=== PATIENT | male | born 1945 | race Caucasian/White ===

== ENCOUNTER → 2017-05-10 | Outpatient (CLI) | payer OTHER | END | disposition home or self-care (01) | LOC: LAB 12:44 | PROVIDERS: ATTEND Urology | DX: N20.1 Calculus of ureter (principal) | CPT/HCPCS: 36415; 82565; 84520 ==

== ENCOUNTER → 2017-05-11 | Outpatient (CLI) | payer OTHER ==
[~2017-05-11] MED LIST: IOPAMIDOL-370 100 ML VIAL IV ONE
== END | disposition home or self-care (01) ==
LOC: RAH 09:28
PROVIDERS: ATTEND Urology
DX: N20.0 Calculus of kidney (principal)
CPT/HCPCS: 74400; Q9967

== ENCOUNTER → 2017-08-02 | Outpatient (CLI) | payer OTHER | END | disposition home or self-care (01) | LOC: RAH 08:35 | PROVIDERS: ATTEND Urology | DX: N20.2 Calculus of kidney with calculus of ureter (principal); I10 Essential (primary) hypertension; E03.9 Hypothyroidism, unspecified | CPT/HCPCS: 74400; Q9967 ==

== ENCOUNTER 2023-05-12 11:12 | Emergency (ER) | payer OTHER ==
[~2023-05-12] VITALS: Ht 175.3 cm; Wt 108.9 kg
[2023-05-12 12:21] LABS: HEMATOCRIT 42.7 % (42-54); MEAN CORPUSCULAR HEMOGLOBIN 31.4 pg (27.0-33.0); MEAN CORPUSCULAR HGB CONC 33.7 g/dL (32.0-36.0); PLATELET COUNT (AUTO) 205 K/uL (130-400); RED BLOOD CELL COUNT(AUTO) 4.59 MIL/uL (4.50-6.20); RED CELL DISTRIBUTION WIDTH 13.3 % (11.0-15.5); WHITE BLOOD COUNT (AUTO) 7.7 K/uL (4.8-10.8)
[2023-05-12 12:30] LABS: CREATININE 0.8 mg/dL (0.5-1.5); MAGNESIUM 2.2 mg/dL (1.80-2.40); POTASSIUM 4.2 mmol/L (3.5-5.1)
[2023-05-12 12:35] LABS: COVID19 (SARS ANTIGEN RAPID) PRESUMPTIVE NEGATIVE (NEGATIVE)
[2023-05-12 12:43] LABS: INFLUENZA TYPE A Negative For Type A (NEGATIVE); INFLUENZA TYPE B Negative For Type B (NEGATIVE)
[2023-05-12 12:45] LABS: B-TYPE NATRIURETIC PEPTIDE < 5 pg/mL (0-100)
[2023-05-12] MEDS ORDERED: BUDESONIDE 0.5 MG/2 ML INH IH ONE (13:16)
[2023-05-12] MEDS ORDERED: ALBUTEROL 0.083% 2.5 MG/3 ML INH IH ONE (13:30)
[2023-05-12] MEDS ORDERED: DEXAMETHASONE SOD PHOSPHATE 4 MG/ML 1ML VIAL IVP ONE (13:30)
[2023-05-12 13:36] VITALS: PULSE 86; RESP 20
[2023-05-12] MEDS ORDERED: BUDE90AE IH (14:06)
[2023-05-12] MEDS ORDERED: BENZ-39 PO (14:06)
[2023-05-12 14:47] VITALS: BP 135/82; PULSE 76; RESP 16; O2SAT 96
[2023-05-12] MEDS ORDERED: BUDESONIDE 0.5 MG/2 ML INH IH SCH (18:00)
== END 2023-05-12 15:12 | disposition home or self-care (01) ==
LOC: EDH 11:12
DX: J06.9 Acute upper respiratory infection, unspecified (principal); R05.9 Cough, unspecified; E03.9 Hypothyroidism, unspecified; E78.00 Pure hypercholesterolemia, unspecified; Z79.51 Long term (current) use of inhaled steroids; Z20.822 Contact with and (suspected) exposure to COVID-19
CPT/HCPCS: 99285; 96374; 71045; 87426; 83735; 84484; 80048; 83880; 85027; 87040; 87420; 87804 ×2; 83605; 36415; 93005; 94640; J1100

== ENCOUNTER → 2023-07-20 | Outpatient (CLI) | payer OTHER ==
[~2023-07-20] MED LIST changes: +BENZ-39 PO; +BUDE90AE IH; -IOPAMIDOL-370 100 ML VIAL IV ONE
== END | disposition home or self-care (01) ==
LOC: SHCH 13:58
PROVIDERS: ATTEND Internal Medicine Cardiovascular Disease
DX: I87.2 Venous insufficiency (chronic) (peripheral) (principal); R60.9 Edema, unspecified
CPT/HCPCS: 93970

== ENCOUNTER → 2023-07-24 | Outpatient (CLI) | payer OTHER | END | disposition home or self-care (01) | LOC: SHCH 14:50 | PROVIDERS: ATTEND Internal Medicine Cardiovascular Disease | DX: I35.1 Nonrheumatic aortic (valve) insufficiency (principal); I51.7 Cardiomegaly; I25.10 Atherosclerotic heart disease of native coronary artery without angina pectoris; R07.9 Chest pain, unspecified; E78.5 Hyperlipidemia, unspecified | CPT/HCPCS: 93306 ==

== ENCOUNTER → 2023-07-25 | Outpatient (CLI) | payer OTHER ==
[2023-07-25] MEDS: REGADENOSON 0.4 MG/5 ML PF SYG IVP ONE (15:01)
== END | disposition home or self-care (01) ==
LOC: SHCH 08:03
PROVIDERS: ATTEND Internal Medicine Cardiovascular Disease
DX: R07.9 Chest pain, unspecified (principal)
CPT/HCPCS: 78452; 96374; 93017; J2785; A9500 ×2

== ENCOUNTER 2023-09-25 07:48 | Day surgery (SDC) | payer OTHER ==
[2023-09-21 08:54] VITALS: BP 144/80; PULSE 70; RESP 18
[2023-09-21 09:01] LABS: CREATININE 0.9 mg/dL (0.5-1.3); POTASSIUM 3.8 mmol/L (3.5-5.1)
[2023-09-21 09:02] LABS: BASOPHILS # (AUTO) 0.06 K/uL (0.00-0.20); BASOPHILS % (AUTO) 0.8 % (0.0-5.0); EOSINOPHILS # (AUTO) 0.29 K/uL (0.00-0.70); HEMATOCRIT 46.7 % (42-54); IMMATURE GRANULOCYTE ABSOLUTE 0.02 K/uL (0-1); LYMPHOCYTES # (AUTO) 2.5 K/uL (1.0-4.8); LYMPHOCYTES % (AUTO) 33.8 % (21.0-51.0); MEAN CORPUSCULAR HEMOGLOBIN 31.4 pg (27.0-33.0); MEAN CORPUSCULAR VOLUME 95.1 fL (79-99); MONOCYTES # (AUTO) 0.7 K/uL (0.1-1.0); MONOCYTES % (AUTO) 9.5 % (3.0-13.0); NEUTROPHILS # (AUTO) 3.8 K/uL (1.8-7.7); NEUTROPHILS % (AUTO) 51.6 % (40.0-77.0); PLATELET COUNT (AUTO) 205 K/uL (130-400); RED BLOOD CELL COUNT(AUTO) 4.91 MIL/uL (4.50-6.20); RED CELL DISTRIBUTION WIDTH 13.6 % (11.0-15.5); WHITE BLOOD COUNT (AUTO) 7.3 K/uL (4.8-10.8)
[2023-09-21 09:17] LABS: INR <= 0.93 (0.85-1.15); PROTHROMBIN TIME 10.3 SEC (9.6-11.6)
[2023-09-21 09:18] LABS: APPEARANCE,URINE CLEAR (CLEAR); BILIRUBIN,URINE NEGATIVE (NEGATIVE); COLOR,URINE DARK-YELLOW (YELLOW); GLUCOSE, URINE (UA) NEGATIVE (NEGATIVE); KETONES,URINE NEGATIVE (NEGATIVE); LEUKOCYTE ESTERASE ,URINE NEGATIVE Leu/uL (NEGATIVE); NITRATE,URINE NEGATIVE (NEGATIVE); OCCULT BLOOD,URINE NEGATIVE (NEGATIVE); PH,URINE 5.5 (5.0-8.0); PROTEIN,URINE NEGATIVE (NEGATIVE)
[2023-09-21 09:18] LABS: PARTIAL THROMBOPLASTIN TIME 28.2 SEC (26.3-35.5)
[2023-09-21 09:20] LABS: ADD UA MICROSCOPIC YES
[2023-09-21 09:33] LABS: B-TYPE NATRIURETIC PEPTIDE 5 pg/mL (0-100)
[2023-09-21 09:42] LABS: RBC,URINE 0-1 /HPF (0-1); WBC,URINE 0-1 /HPF (0-1)
[2023-09-25] VITALS (8 sets, daily range): BP systolic 125–145; BP diastolic 72–92; PULSE 55–72; RESP 17–18
[~2023-09-25] VITALS: Ht 175.3 cm; Wt 105.9 kg
[~2023-09-25 07:48] MED LIST changes: +ALFU10TA9 PO; -BENZ-39 PO; -BUDE90AE IH; +LEVO50TA11 PO
[2023-09-25] MEDS: 0.9%NACL 1000ML 1,000 ML IV ONE (08:42)
[2023-09-25] MEDS ORDERED: LIDOCAINE HCL 400MG/20ML VIAL ONE (10:17)
[2023-09-25] MEDS ORDERED: MEPERIDINE-PF 25 MG/ML SYG ONE ×2 (10:18→10:32)
[2023-09-25] MEDS ORDERED: NICARDIPINE 25MG INJ IV ONE (10:18)
[2023-09-25] MEDS ORDERED: MIDAZOLAM HCL 1 MG/ML 2ML VIAL ONE ×2 (10:18→10:32)
[2023-09-25] MEDS ORDERED: HEPARIN 10,000 UNIT/10ML (1,000 UNIT/ML) VIAL ONE (10:18)
[2023-09-25] MEDS ORDERED: SODIUM BICARB 50MEQ 50ML VIAL 50 ML ONE (10:18)
[2023-09-25] MEDS ORDERED: IOHEXOL 350 MG/ML 100ML INFUS..BTL IV ONE (10:18)
[2023-09-25] MEDS ORDERED: NITROGLYCERIN 50MG VIAL ONE (10:19)
[2023-09-25] MEDS ORDERED: 0.9%NACL 1000ML 1,000 ML IV SCH (12:00)
[2023-09-25] MEDS ORDERED: CEFAZOLIN SODIUM 2 GM VIAL IVPB SCH (13:00)
[2023-09-25] MEDS ORDERED: ATORVASTATIN 40 MG TABLET PO SCH (21:00)
[2023-09-25] MEDS ORDERED: METOPROLOL TARTRATE 25 MG TAB PO SCH (21:00)
[2023-09-26] MEDS ORDERED: ASPIRIN 81 MG EC TAB PO SCH (09:00)
== END 2023-09-25 15:33 | disposition home or self-care (01) ==
LOC: DAH 07:48 → UNDOADMIN 07:49 → DAHIP 07:49
PROVIDERS: ATTEND Internal Medicine Cardiovascular Disease
DX: I25.119 Atherosclerotic heart disease of native coronary artery with unspecified angina pectoris (principal); I10 Essential (primary) hypertension; I25.3 Aneurysm of heart; I87.1 Compression of vein; K21.9 Gastro-esophageal reflux disease without esophagitis; J45.909 Unspecified asthma, uncomplicated; E78.5 Hyperlipidemia, unspecified; E66.9 Obesity, unspecified; E03.9 Hypothyroidism, unspecified; Z79.899 Other long term (current) drug therapy; Z79.01 Long term (current) use of anticoagulants; Z68.35 Body mass index [BMI] 35.0-35.9, adult; Z79.890 Hormone replacement therapy
CPT/HCPCS: 80048; 83880; 85025; 85610; 85730; 81001; 36415 ×2; 71045; 93005; 93458; 92978; 85347; 92979 ×3; C1887 ×3; C1769 ×2; A4649; C1894; C1753; J3490 ×4; J7030; J1644 ×2; J2250 ×2; J2175 ×2; Q9967; A4215; A4222; A4221; A4663; A4606; Q9965 ×2; A4223 ×3; 99156; 99157

== ENCOUNTER 2024-06-24 18:11 | Inpatient (IN) | payer OTHER ==
[~2024-06-24] VITALS: Ht 175.3 cm; Wt 85.8 kg
[~2024-06-24 18:11] MED LIST changes: +AEC81 PO; +ALFU10TA46 PO; -ALFU10TA9 PO; +FURO20TA4 PO; +METO25TA6 PO; +MORINGA PO; +OMEG100033 PO; +ROSU20TA98 PO; +VITAMIN B COMPLEX PO; +ZINC PO
--- NOTE | 2024-06-24 18:45 | EKG ---
[facility] Test Date: 2024-06-24 Test Time: 18:43:45 Pat Name: PARK WING Department: EDH Room: ED Gender: M Stabber: [id number] : 1945 Requested By: DARELL ACHARYA Order Number: [id number] Reading MD: Cam Malik Measurements Intervals [place] Rate: 111 P: 47 GA: 166 QRS: 55 QRSD: 93 T: 266 QT: 333 QTc: 453 Interpretive Statements Sinus tachycardia Abnormal T, consider ischemia, diffuse leads Compared to ECG 10/30/2023 15:33:14 Sinus rhythm no longer present Prolonged QT interval no longer present T-wave abnormality still present Possible ischemia still present Electronically Signed On 06-25-2024 23:32:13 CDT by Cam Malik Please click the below link to view image of tracing.
--- NOTE | 2024-06-24 19:05 | ERN ---
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 Patient denies any nausea or vomiting, denies any fevers. Reports loose stools, left lower abdominal pain. Patient reports taking baby aspirin every day. Allergies: Coded Allergies: No Known Drug Allergies (Unverified Allergy, Unknown, 05/12/23) Home Meds Reported Medications Metoprolol Tartrate (Metoprolol Tartrate) 25 Mg Tablet, 25 MG PO BID, TAB 11/04/23 Metoprolol Tartrate (Metoprolol Tartrate) 25 Mg Tablet, 25 MG PO BID, TAB 11/04/23 Furosemide (Furosemide) 20 Mg Tablet, 20 MG PO DAILY, TAB 11/04/23 [[place]] No Conflict Check, 4 TAB PO DAILY 10/27/23 [Zinc] No Conflict Check, 1 TAB PO DAILY 10/27/23 [place]-3/Dha/Epa/Fish Oil (Fish Oil 1,000 mg Softgel) 1,000 Mg (120 Mg-180 Mg) Capsule, 1000 MG PO BID, CAP 10/27/23 [Vitamin B Complex] No Conflict Check, 1 TAB PO DAILY 10/27/23 Rosuvastatin Calcium (Rosuvastatin Calcium) 20 Mg Tablet, 10 MG PO AM, TAB 10/27/23 Aspirin (ASPIRIN 81 MG ECTAB) 81 Mg Ectab, 81 MG PO DAILY, TAB.EC 10/27/23 Alfuzosin HCl (Alfuzosin HCl) 10 Mg Tab.er.24h, 10 MG PO HS, TAB 09/21/23 Levothyroxine Sodium (Levothyroxine Sodium) 50 Mcg Tablet, 50 MCG PO ACBKFST, TAB 09/21/23 Past Medical History Past Medical History: High Cholesterol, Heart Disease, Hypothyroid, Kidney Stone, Prostatitis Additional Past Medical Hx: BPH Surgical History: CABG, Other RN Note Reviewed/Agreed w/PFSH: Yes Review of System Dictation Constitutional: Negative for fever,chills, and weight loss Eyes: Negative for injury, pain,redness, and discharge ENT: Negative for injury,pain or swelling Cardiovascular: Negative for chest pain, palpitations, and edema Respiratory: Negative for shortness of breath, cough, and wheezing, Abdomen/GI: Negative for nausea, vomiting, diarrhea, and constipation positive for left lower abdominal pain Back: Negative for injury and pain : Negative for injury, bleeding and discharge positive for rectal bleeding MS/Extremity: Negative for injury and deformity Skin: Negative for rash, and discoloration Neuro: Negative for headache, weakness, numbness, tingling, and seizure Psych: Negative for suicide ideation, homicidal ideation, and hallucinations Initial Vital Sign VS Vital Signs Date Time Temp Pulse Resp B/P (MAP) Pulse Ox O2 Delivery O2 Flow Rate FiO2 06/24/24 18:13 98.1 106 18 125/94 97 Room Air 0 06/24/24 20:05 21 Physical Exam Dictation Vital Signs reviewed General Appearance: Alert, oriented x 3, no acute distress, well developed, nourished. Head and Face: non-traumatic. Eyes: PERRL, pink conjunctivas, eyelid no trauma, anterior chamber with arcus senilis. Ears: Pinnas intact and no signs of trauma or erythema ear canals clear and no discharge TM no erythema Nose: No discharge, no bleeding. Oropharynx: Mouth normal, tongue pink. pharynx clear,no erythema, tonsils no exudates, no abscesses noted, mucous membrane moist Neck: Supple, non-tender, no thyromegaly, no masses, no JVD, no bruits Breast:Deferred Chest:No tenderness, no crepitus, no paradoxical movement, no retractions Lungs:Clear, well-ventilated, symmetric, no rales, no wheezing, no rhonchi, no stridor, good breath sounds bilaterally Heart: Regular rate, regular rhythm, no murmur, no gallops Vascular: no peripheral edema, Abdomen: Soft, positive bowel sounds, nondistended, no guarding, nontender, no rebound, no masses no hepatomegaly, no splenomegaly, no Estrada's sign, no hernias. Rectal: Bright red blood noted to rectum, small fissure Genital: Deferred Neurological: Normal speech, motor function intact, sensory function intact Musculoskeletal: Neck nontender, full range of motion, back nontender, full range of motion, Extremities: nontender, full range of motion Skin: Color pink, dry, no turgor, no rash, no lacerations, no abrasions, no contusions. Lymphatic: Deferred Results (Laboratory/Radiology) Laboratory/Radiology Laboratory Tests Test 06/24/24 19:02 06/24/24 19:37 06/24/24 20:27 White Blood Count 9.0 K/uL (4.8-10.8) Red Blood Count 3.99 MIL/uL (4.50-6.20) L Hemoglobin 12.7 g/dL (14.0-18.0) L Hematocrit 38.0 % (42-54) L Mean Corpuscular Volume 95.2 fL (79-99) Mean Corpuscular Hemoglobin 31.8 pg (27.0-33.0) Mean Corpuscular Hemoglobin Concent 33.4 g/dL (32.0-36.0) Red Cell Distribution Width 13.5 % (11.0-15.5) Platelet Count 218 K/uL (130-400) Mean Platelet Volume 10.8 fL (7.5-10.5) H Immature Granulocyte % (Auto) 0.3 % (0-1) Neutrophils (%) (Auto) 62.5 % (40.0-77.0) Lymphocytes (%) (Auto) 26.9 % (21.0-51.0) Monocytes (%) (Auto) 7.1 % (3.0-13.0) Eosinophils (%) (Auto) 2.5 % (0.0-8.0) Basophils (%) (Auto) 0.7 % (0.0-5.0) Neutrophils # (Auto) 5.6 K/uL (1.8-7.7) Lymphocytes # (Auto) 2.4 K/uL (1.0-4.8) Monocytes # (Auto) 0.6 K/uL (0.1-1.0) Eosinophils # (Auto) 0.23 K/uL (0.00-0.70) Basophils # (Auto) 0.06 K/uL (0.00-0.20) Absolute Immature Granulocyte (auto 0.03 K/uL (0-1) Nucleated Red Blood Cells 0.0 % (0.0-0.19) Prothrombin Time 10.6 SEC (9.6-11.6) Prothromb Time International Ratio 1.00 (0.85-1.15) Activated Partial Thromboplast Time 28.3 SEC (26.3-35.5) Sodium Level 140 mmol/L (136-145) Potassium Level 4.0 mmol/L (3.5-5.1) Chloride Level 107 mmol/L (101-111) Carbon Dioxide Level 28 mmol/L (21-32) Blood Urea Nitrogen 19 mg/dL (7-18) H Creatinine 0.8 mg/dL (0.5-1.3) Glomerular Filtration Rate Calc 89 mL/min (>90) Random Glucose 133 mg/dL (70-105) H Total Calcium 8.9 mg/dL (8.5-10.1) Total Bilirubin 0.5 mg/dL (0.2-1.0) Direct Bilirubin 0.1 mg/dL (0.0-0.3) Aspartate Amino Transf (AST/SGOT) 19 U/L (10-37) Alanine Aminotransferase (ALT/SGPT) 21 U/L (12-78) Alkaline Phosphatase 79 U/L (50-136) Total Creatine Kinase 72 U/L (21-232) Troponin I High Sensitivity 7.0 ng/L (4-75) B-Type Natriuretic Peptide 21 pg/mL (0-100) Total Protein 7.0 g/dL (6.0-8.3) Albumin 3.3 g/dL (3.5-5.0) L Stool Occult Blood POSITIVE (NEGATIVE) H Urine Color YELLOW (YELLOW) Urine Appearance CLEAR (CLEAR) Urine pH 5.0 (5.0-8.0) Urine Specific [place] 1.027 (1.001-1.031) Urine Protein NEGATIVE mg/dL (NEGATIVE) Urine Glucose (UA) NEGATIVE mg/dL (NEGATIVE) Urine Ketones NEGATIVE mg/dL (NEGATIVE) Urine Occult Blood NEGATIVE (NEGATIVE) Urine Nitrate NEGATIVE (NEGATIVE) Urine Bilirubin NEGATIVE mg/dL (NEGATIVE) Urine Urobilinogen 0.2 mg/dL (0.2-1.0) Urine Leukocyte Esterase NEGATIVE [place]/uL Urine RBC 0-1 /HPF (0-1) Urine WBC 2-5 /HPF (0-1) H Urine Squamous Epithelial Cells RARE /HPF (0-2) Urine Bacteria None /HPF (None Seen) REASON: sob ORDERING PHYSICIAN: DARELL ACHARYA PROCEDURE: CXR1VW - CHEST 1VW Exam Type: CHEST 1VW Clinical Information: sob Comparison: None Findings: There is normal heart size and there is status post median sternotomy. The lungs are clear of infiltrates. Impression: Clear lungs. REASON: left lower abd pain, rectal bleeding ORDERING PHYSICIAN: DARELL ACHARYA PROCEDURE: ABD PEL WO - CT ABDOMEN/PELVIS W/O CONTRAST CT ABDOMEN PELVIS WITHOUT CONTRAST Clinical Information: left lower abd pain, rectal bleeding PROTOCOL: Routine noncontrast helical scanning of the abdomen and pelvis was performed at 5mm collimation. Findings: No evidence of nephro or ureterolithiasis is found. No hydronephrosis or ureteral dilatation is seen. The lung bases are clear. The spleen, pancreas, gallbladder and adrenal glands are unremarkable. The liver is unremarkable. It shows no focal masses. The appendix is unremarkable. There is diverticulosis of the colon particularly involving the sigmoid colon. There are no acute inflammatory changes to suggest diverticulitis. The small and large bowel and pelvic viscera are otherwise unremarkable. The bony and vascular structures are unremarkable for the patient's age. IMPRESSION: Diverticulosis of the colon particularly involving the sigmoid. Otherwise negative CT SCAN OF THE ABDOMEN AND PELVIS. NO RENAL STONES. NO ACUTE PATHOLOGY OR INFLAMMATION SEEN. This study was performed using dose reduction techniques to include automated exposure control and/or adjustment of the mA and/or kV according to patient size. Labs Reviewed?: Yes EKG: (+) rhythm (Sinus rhythm) EKG Comment: Date:06/24/2024 Time:1843 Ventricular [id number] UT interval:166 QRS duration:93 QT/QTc:333 EKG interpretation: Sinus tachycardia Reviewed by ED Attending no STEMI ED Course ED Course Orders Procedure Category Date Status Time Cbc With Differential LAB 06/24/24 Complete 18:31 Urinalysis Profile LAB 06/24/24 Complete 18:31 Occult Blood Stool LAB 06/24/24 Complete Single Only 18:31 12 Lead Ekg Tracing- EKG 06/24/24 Complete Technical 18:31 Pantoprazole 40mg Inj PHA 06/24/24 Complete (Protonix 40mg Inj 19:00 Ct Abdomen/Pelvis W/O CT 06/24/24 Resulted Contrast 18:31 Basic Metabolic Panel LAB 06/24/24 Complete 18:31 Pt And Ptt LAB 06/24/24 Complete 18:31 B-Type Natriuretic LAB 06/24/24 Complete Peptide 18:31 Chest 1vw RAD 06/24/24 Resulted 18:31 Type And Screen BBK 06/24/24 Complete 18:37 Hepatic Function Panel LAB 06/24/24 Complete 19:02 Cardiac Panel LAB 06/24/24 Complete 19:02 Pantoprazole 40mg Inj PHA 06/24/24 Complete (Protonix 40mg Inj 21:00 Pantoprazole 40mg Inj PHA 06/24/24 Logged (Protonix 40mg Inj 21:00 Keep Patient Npo CPOE 06/24/24 Transmitted 20:51 Admit Orders ADM 06/24/24 Transmitted 20:51 Edm Admit Bridge Order ADM 06/24/24 Transmitted 20:54 Current Medications Medications (Trade) Dose Ordered Sig/[place] Route PRN Reason Start Time Stop Time Status Last Admin Dose Admin Pantoprazole Sodium (PROTonix 40MG INJ) 80 mg ONCE IVP 06/24/24 19:00 06/24/24 20:54 DC 06/24/24 20:05 Pantoprazole Sodium 80 mg/ Sodium Chloride 100 ml @ 10 mls/hr Q10H IVP 06/24/24 21:00 06/24/24 20:48 DC Pantoprazole Sodium 80 mg/ Sodium Chloride 100 ml @ 10 mls/hr Q10H IVP 06/24/24 21:00 07/24/24 20:59 UNV Vital Signs Date Time Temp Pulse Resp B/P (MAP) Pulse Ox O2 Delivery O2 Flow Rate FiO2 06/24/24 20:05 98.6 67 20 132/90 100 Room Air* 0 21 06/24/24 18:13 98.1 106 18 125/94 97 Room Air 0 Medical Decision Making MDM MDM: The patient 79-year-old male with a history of BPH, hypertension, hyperlipidemia, 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 Patient denies any nausea or vomiting, denies any fevers. Reports loose stools, left lower abdominal pain. Patient reports taking baby aspirin every day. CBC showed no leukocytosis, normocytic anemia, chemistry showed GFR of 89, no electrolyte imbalance, negative BNP, negative liver enzymes coagulation urinalysis unremarkable, fecal occult positive. CT abdomen showed diverticulosis without diverticulitis. Patient will be admitted for GI of the needs further evaluation. Differential diagnosis: GI bleed, hemorrhoids, diverticulitis, gastroenteritis, anemia Comorbidities: CAD, CABG, hypertension, hyperlipidemia Tests considered and not ordered secondary to shared decision making include: none Previous outside records reviewed: none Risk of complication and/or morbidity or mortality of patient management: The patient meets criteria for admission. Need for emergency major/minor surgery: No There are no social concerns with this patient. I independently interpreted the tests I ordered (labs, urinalysis, etc.). I discussed the case with the hospitalist for admission. [facility] who accepts admission I discussed the case with the following specialists: none. Historian: pateint. I independently interpreted imaging studies and EKGs that I ordered (US, CT, XR, EKG, etc.). External chart review: none. Medical management and examination interpretation discussions were had by me with other qualified healthcare professionals as indicated for the patient's care. DX & DISP Disposition: Inpatient Decision to Admit Date: Jun 24, 2024 Decision to Admit Time: 20:58 Departure Impression: Primary Impression: GI bleed Additional Impressions: Anemia, Diverticulosis Condition: Stable Referrals: KESHAWN COOK MD (PCP) I have reviewed the case, and I agree with, Diagnosis and Plan DARELL ACHARYA [facility] Jun 24, 2024 19:05
[2024-06-24 19:14] LABS: BASOPHILS # (AUTO) 0.06 K/uL (0.00-0.20); BASOPHILS % (AUTO) 0.7 % (0.0-5.0); EOSINOPHILS # (AUTO) 0.23 K/uL (0.00-0.70); EOSINOPHILS % (AUTO) 2.5 % (0.0-8.0); IMMATURE GRANULOCYTE ABSOLUTE 0.03 K/uL (0-1); LYMPHOCYTES # (AUTO) 2.4 K/uL (1.0-4.8); LYMPHOCYTES % (AUTO) 26.9 % (21.0-51.0); MEAN CORPUSCULAR HEMOGLOBIN 31.8 pg (27.0-33.0); MEAN CORPUSCULAR HGB CONC 33.4 g/dL (32.0-36.0); MEAN CORPUSCULAR VOLUME 95.2 fL (79-99); MONOCYTES # (AUTO) 0.6 K/uL (0.1-1.0); MONOCYTES % (AUTO) 7.1 % (3.0-13.0); NEUTROPHILS # (AUTO) 5.6 K/uL (1.8-7.7); NEUTROPHILS % (AUTO) 62.5 % (40.0-77.0); PLATELET COUNT (AUTO) 218 K/uL (130-400); RED BLOOD CELL COUNT(AUTO) 3.99 MIL/uL (4.50-6.20); RED CELL DISTRIBUTION WIDTH 13.5 % (11.0-15.5)
[2024-06-24 19:25] LABS: CREATININE 0.8 mg/dL (0.5-1.3)
[2024-06-24 19:29] LABS: PROTHROMBIN TIME 10.6 SEC (9.6-11.6)
[2024-06-24 19:30] LABS: PARTIAL THROMBOPLASTIN TIME 28.3 SEC (26.3-35.5)
--- NOTE | 2024-06-24 19:31 | HMCIMG ---
CT ABDOMEN PELVIS WITHOUT CONTRAST Clinical Information: left lower abd pain, rectal bleeding PROTOCOL: Routine noncontrast helical scanning of the abdomen and pelvis was performed at 5mm collimation. Findings: No evidence of nephro or ureterolithiasis is found. No hydronephrosis or ureteral dilatation is seen. The lung bases are clear. The spleen, pancreas, gallbladder and adrenal glands are unremarkable. The liver is unremarkable. It shows no focal masses. The appendix is unremarkable. There is diverticulosis of the colon particularly involving the sigmoid colon. There are no acute inflammatory changes to suggest diverticulitis. The small and large bowel and pelvic viscera are otherwise unremarkable. The bony and vascular structures are unremarkable for the patient's age. IMPRESSION: Diverticulosis of the colon particularly involving the sigmoid. Otherwise negative CT SCAN OF THE ABDOMEN AND PELVIS. NO RENAL STONES. NO ACUTE PATHOLOGY OR INFLAMMATION SEEN. This study was performed using dose reduction techniques to include automated exposure control and/or adjustment of the mA and/or kV according to patient size.
[2024-06-24 19:32] LABS: ALBUMIN 3.3 g/dL (3.5-5.0); BILIRUBIN,DIRECT 0.1 mg/dL (0.0-0.3); BILIRUBIN,TOTAL 0.5 mg/dL (0.2-1.0)
[2024-06-24 19:45] LABS: B-TYPE NATRIURETIC PEPTIDE 21 pg/mL (0-100)
--- NOTE | 2024-06-24 19:52 | HMCIMG ---
Exam Type: CHEST 1VW Clinical Information: sob Comparison: None Findings: There is normal heart size and there is status post median sternotomy. The lungs are clear of infiltrates. Impression: Clear lungs.
[2024-06-24] MEDS: PANTOPrazole 40 MG/VIAL IVP SCH (20:05)
[2024-06-24 20:39] LABS: ADD UA MICROSCOPIC YES; APPEARANCE,URINE CLEAR (CLEAR); BILIRUBIN,URINE NEGATIVE (NEGATIVE); COLOR,URINE YELLOW (YELLOW); GLUCOSE, URINE (UA) NEGATIVE (NEGATIVE); KETONES,URINE NEGATIVE (NEGATIVE); LEUKOCYTE ESTERASE ,URINE NEGATIVE Leu/uL (NEGATIVE); NITRATE,URINE NEGATIVE (NEGATIVE); OCCULT BLOOD,URINE NEGATIVE (NEGATIVE); PROTEIN,URINE NEGATIVE (NEGATIVE); UROBILINOGEN,URINE 0.2 mg/dL (0.2-1.0)
[2024-06-24 20:40] LABS: MUCUS,URINE RARE LPF (None Seen); RBC,URINE 0-1 /HPF (0-1); SQUAMOUS EPITHELIAL CELL,UR RARE /HPF (0-2)
[2024-06-24] MEDS ORDERED: PANTOPrazole 40MG INJ 80 MG in 0.9%NACL 100ML 100 ML IV SCH (21:00)
[2024-06-24] MEDS ORDERED: PANTOPrazole 40MG INJ 80 MG in 0.9%NACL 100ML 100 ML IVP SCH (21:00)
--- NOTE | 2024-06-24 21:38 | HP ---
[facility] HISTORY [facility] PHYS[facility] Date of Service: Jun 24, 2024 Time of Service: 21:38 PCP:Mandeep Boo HISTORY OF PRESENT ILLNESS: This is an 79-year-old male with past medical history of hyperlipidemia, hypothyroidism, BPH, kidney stone stone, GERD, asthma, basal cell carcinoma, hypertension, obesity, obstructive sleep apnea on CPAP at home and coronary artery disease with CABG x3 who presents to the ED today for complaints of bloody stool. Patient reports he has seven episodes of bloody stool today. Patient states last Monday he was constipated and when he went to the restroom and wiped himself he noticed blood in the toilet paper and today he started having loose stool and he noticed bright red with some tiny clots on the toilet.Patient states this is the first time he experienced this and he sometimes felt dizzy when he got up .Patient states he went to see a Nurse practitioner at [facility] and did some blood work and he received a call and was instructed to come to the ED for evaluation.Patient also reports having abdominal gurgling sound mostly around his left lower abdominal quadrant and denies abdominal pain.Patient states he is taking daily Aspirin 81 mg po and last dose taken was this morning he said.Patient had a colonoscopy with polyp removal on 2022.Patient also reports he has an appointment with Dr. Dedrick Tovar in 2 weeks. Seen and examined patient in the ER awake,alert,coherent and ambulatory. Melody was at bedside during my evaluation.Patient denies fever, chills, nausea, vomiting blood,abdominal pain,chest pain,palpitation and shortness of breath. Latest Vital signs Temperature 98.6, heart rate 67, blood pressure 132/90, saturation 100% on room air. Hemoglobin 12.7,11.9, hematocrit 38 to 35.8, platelet count 218. BUN 19, GFR 89, glucose 133, BNP 21, troponin seven albumin 3.3. Fecal occult blood +positive. Chest x-ray is normal. CT abdomen and pelvis without contrast result revealed diverticulosis of the colon particularly involving the sigmoid. While in the ER patient received Protonix 80 mg IV push started on Protonix drip. We will admit patient for further medical management. REVIEW OF SYSTEMS CONSTITUTIONAL: Denies fevers, chills, or night sweats. No unintentional weight loss reported. NEUROLOGICAL: Denies headache, amaurosis fugax, motor weakness, sensory deficit, vertigo/spinning sensation, gait abnormalities, or tremors. ENT: No hearing loss, otalgia, otorrhea, rhinitis, rhinorrhea, hoarseness, or sore throat. CARDIOVASCULAR: Denies any exertional angina, dyspnea on exertion, orthopnea, paroxysmal nocturnal dyspnea, palpitations, life-threatening arrhythmias, claudication. PULMONARY: Denies any shortness of breath, cough, phlegm/sputum, hemoptysis, pleuritic chest pain. SLEEP: Denies morning headaches, daytime somnolence or napping. Denies difficulty falling asleep, staying asleep, waking from sleep. Denies knowledge of snoring. GASTROINTESTINAL: Denies any type of dysphagia to either liquids or solids. Denies nausea, vomiting, pyrosis, early satiety, abdominal pain, diarrhea, constipation, or changes in stool consistency or caliber. Denies coffee-ground emesis, hematemesis, hematochezia, or melanotic stools. GENITOURINARY: Denies frequency, urgency, nocturia, hematuria or incontinence (Storage/Irritative symptoms.) Low urinary stream, straining to void, urinary intermittency or hesitancy, splitting of the voiding stream, terminal dribbling. ENDOCRINOLOGIC: Denies polyuria, polydipsia, polyphagia or heat/cold intolerances. HEMATOLOGIC: Denies thrombophilia/previous clots, or coagulopathy/bleeding disorders. ONCOLOGIC: Denies personal history of malignancy. DERMATOLOGIC: Denies rashes or pruritus. PSYCHIATRIC: Denies any suicidal or homicidal ideation. Denies hallucinations. 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 Titus me 2001, right cataract surgery, and colonoscopy polyp removal 2022 ] PAST SOCIAL HISTORY: [ Patient lives with Melody. Patient admits to drinking three shots of whiskey per week. Patient denies tobacco and recreational drug use ] FAMILY HISTORY: [ Cancer. ] Coded Allergies: No Known Drug Allergies (Unverified Allergy, Unknown, 05/12/23) PHYSICAL EXAM GENERAL APPEARANCE: The patient is awake, alert, and oriented, in no acute cardiopulmonary distress. NEUROLOGICAL: Cranial nerves II-XII grossly intact. Motor is 5/5 in bilateral upper and lower extremities proximal to distal. No sensory deficits. HEENT: Face is symmetric. Pupils are equal and reactive. Extraocular movements are intact. NECK: Supple. No JVD. No thyromegaly. No submental, submandibular, pre- /postauricular, occipital or supraclavicular lymphadenopathy. CHEST: Normal chest expansion. No Telemetry. LUNGS: Absence of any rales, rhonchi or any wheezing. CARDIOVASCULAR: Regular. S1 and S2 normal. No appreciable rubs, murmurs or gallops. ABDOMEN: Soft, nontender, and nondistended. There is no rebound, voluntary guarding, or rigidity. : Deferred. No Dawson. EXTREMITIES: Non-edematous and not cyanotic. No clubbing. Good capillary refill. SKIN: No skin breakdown. Vital Sign (Last 24 Hours) 06/24/24 20:05 Temp 98.6 Pulse 67 Resp 20 B/P (MAP) 132/90 Pulse Ox 100 O2 Delivery Room Air* O2 Flow Rate 0 FiO2 21 LABS: Laboratory: Test 06/24/24 20:27 06/24/24 19:37 06/24/24 19:02 Range/Units Urine Color YELLOW YELLOW Urine Appearance CLEAR CLEAR Urine pH 5.0 5.0-8.0 Urine Specific [place] 1.027 1.001-1.031 Urine Protein NEGATIVE NEGATIVE mg/dL Urine Glucose (UA) NEGATIVE NEGATIVE mg/dL Urine Ketones NEGATIVE NEGATIVE mg/dL Urine Occult Blood NEGATIVE NEGATIVE Urine Nitrate NEGATIVE NEGATIVE Urine Bilirubin NEGATIVE NEGATIVE mg/dL Urine Urobilinogen 0.2 0.2-1.0 mg/dL Urine Leukocyte Esterase NEGATIVE NEGATIVE Sanjuana/uL Urine RBC 0-1 0-1 /HPF Urine WBC 2-5 H 0-1 /HPF Urine Squamous Epithelial Cells RARE 0-2 /HPF Urine Bacteria None None Seen /HPF Stool Occult Blood POSITIVE H NEGATIVE White Blood Count 9.0 4.8-10.8 K/uL Red Blood Count 3.99 L 4.50-6.20 MIL/uL Hemoglobin 12.7 L 14.0-18.0 g/dL Hematocrit 38.0 L 42-54 % Mean Corpuscular Volume 95.2 79-99 fL Mean Corpuscular Hemoglobin 31.8 27.0-33.0 pg Mean Corpuscular Hemoglobin Concent 33.4 32.0-36.0 g/dL Red Cell Distribution Width 13.5 11.0-15.5 % Platelet Count 218 130-400 K/uL Mean Platelet Volume 10.8 H 7.5-10.5 fL Immature Granulocyte % (Auto) 0.3 0-1 % Neutrophils (%) (Auto) 62.5 40.0-77.0 % Lymphocytes (%) (Auto) 26.9 21.0-51.0 % Monocytes (%) (Auto) 7.1 3.0-13.0 % Eosinophils (%) (Auto) 2.5 0.0-8.0 % Basophils (%) (Auto) 0.7 0.0-5.0 % Neutrophils # (Auto) 5.6 1.8-7.7 K/uL Lymphocytes # (Auto) 2.4 1.0-4.8 K/uL Monocytes # (Auto) 0.6 0.1-1.0 K/uL Eosinophils # (Auto) 0.23 0.00-0.70 K/uL Basophils # (Auto) 0.06 0.00-0.20 K/uL Absolute Immature Granulocyte (auto 0.03 0-1 K/uL Nucleated Red Blood Cells 0.0 0.0-0.19 % Prothrombin Time 10.6 9.6-11.6 SEC Prothromb Time International Ratio 1.00 0.85-1.15 Activated Partial Thromboplast Time 28.3 26.3-35.5 SEC Sodium Level 140 136-145 mmol/L Potassium Level 4.0 3.5-5.1 mmol/L Chloride Level 107 101-111 mmol/L Carbon Dioxide Level 28 21-32 mmol/L Blood Urea Nitrogen 19 H 7-18 mg/dL Creatinine 0.8 0.5-1.3 mg/dL Glomerular Filtration Rate Calc 89 >90 mL/min Random Glucose 133 H 70-105 mg/dL Total Calcium 8.9 8.5-10.1 mg/dL Total Bilirubin 0.5 0.2-1.0 mg/dL Direct Bilirubin 0.1 0.0-0.3 mg/dL Aspartate Amino Transf (AST/SGOT) 19 10-37 U/L Alanine Aminotransferase (ALT/SGPT) 21 12-78 U/L Alkaline Phosphatase 79 50-136 U/L Total Creatine Kinase 72 21-232 U/L Troponin I High Sensitivity 7.0 4-75 ng/L B-Type Natriuretic Peptide 21 0-100 pg/mL Total Protein 7.0 6.0-8.3 g/dL Albumin 3.3 L 3.5-5.0 g/dL Current Medications Medications (Trade) Dose Ordered Sig/Saranya Route PRN Reason Start Time Stop Time Status Last Admin Dose Admin Pantoprazole Sodium (PROTonix 40MG INJ) 80 mg ONCE IVP 06/24/24 19:00 06/24/24 20:54 DC 06/24/24 20:05 80 MG Pantoprazole Sodium 80 mg/ Sodium Chloride 100 ml @ 10 mls/hr Q10H IV 06/24/24 21:00 07/24/24 20:59 Pantoprazole Sodium 80 mg/ Sodium Chloride 100 ml @ 10 mls/hr Q10H IVP 06/24/24 21:00 06/24/24 20:48 DC DIAGNOSTICS / RADIOLOGY: [ ] ASSESSMENT: Acute GI bleed POA Hypertension POA Hyperlipidemia POA Hypothyroidism POA GERD POA Obstructive sleep apnea on CPAP POA Coronary artery disease with CABG x3 POA History of polyp POA PLAN: We will admit patient in medical telemetry We will keep patient nothing by mouth We will start on Protonix drip We will start NS @ 100 ml / hr x2 bags and re evaluate We will replace electrolytes as needed per protocol We will add prn medication for fever,pain,cough, nausea and vomiting We will reconcile home meds once medlist available We will seek gastroenterology consultation We will do serial H and H x3 We will do H&H p.r.n. bleeding We will transfuse with PRBC to keep hemoglobin above seven We will request labs in am Further orders to follow depending on above results Case discussed with attending physician and came up with above treatment and plan of care. ADVANCED CARE PLANNING 1. Which of the following were discussed? Hospice Care - No Therapeutic options - Yes Advance Directives - No Other discussions - 2. Discussed with who? Patient and Melody 3. Voluntary nature of this service was explained to the patient? Yes 4. Amount of time spent - __22 5. Reviewed by Physician? (if this service was performed by NPP) Yes NICOLE AGUILAP Jun 24, 2024 21:38
[2024-06-24] MEDS ORDERED: hydrALAZine 20MG/ML VIAL IV PRN (22:00)
[2024-06-24] MEDS ORDERED: ondanSETRON 4MG INJ IV PRN (22:00)
[2024-06-24 22:11] LABS: HEMATOCRIT 35.8 % (42-54)
--- NOTE | 2024-06-24 22:37 | CONS ---
GASTROENTEROLOGY CONSULTATION NOTE Date of Consultation: Jun 24, 2024 Time of Consultation: 22:37 History of Present Illness: This is an 79-year-old male with past medical history of BPH, hypertension, hyperlipidemia, CABG November 04, 2023 who presented due to hematochezia. He reported left lower abdominal pain. CT revealing diverticulosis with no evidence of diverticulitis. Hemoglobin on admission was 12.7 with a platelet count of 218. Patient underwent a colonoscopy May 06, 2024 which revealed a small colon polyp in the transverse colon status post polypectomy. There was severe diverticulosis. Review of Systems: CONSTITUTIONAL: No malaise or change in sensation of wellbeing. ENMT: No rhinorrhea, otorrhea, sinus pain, ear ache. CARDIOVASCULAR: No angina, palpitations, orthopnea or paroxysmal dyspnea. RESPIRATORY: No SOB. GASTROINTESTINAL: No abdominal pain, nausea, vomiting, diarrhea, hematemesis, melena or change in the patient's habitual bowel movements consistency/number. GENITOURINARY: No dysuria, hematuria or change in bladder continence. MUSCULOSKELETAL: No new muscle pain or decrease in muscular strength. No new joint swelling, redness or tenderness. SKIN: No new rash. Past Medical History: [ ] Past Surgical History: [ ] Past Social History: [ ] Family History: [ ] Coded Allergies: No Known Drug Allergies (Unverified Allergy, Unknown, 05/12/23) Physical Exam: GEN: Awake, alert, oriented in person, time and place, and in no acute distress. HEENT: No sinus tenderness. Tympanic membranes were not examined. No rhinorrhea. Oral pharyngeal mucosa is pink, moist and within normal limits. Neck is supple with no cervical lymphadenopathy, thyromegaly or JVD. CHEST: Inspection, palpation and percussion of the chest were unremarkable. Lung auscultation revealed normal breath sounds bilaterally. CARDIAC: PMI is within normal limits. Heart sounds are regular. Normal S1, S2. No gallop or murmur. ABD: Soft, non-tender and not distended. No peritoneal signs on palpation. No organomegaly. Normal bowel sounds. EXT: No cyanosis or clubbing. No edema. SKIN: Intact. No rashes. JOINTS: No evidence of synovitis or acute arthritis. NEURO: Alert and oriented to name, place and person. Cranial nerve examination is unremarkable. No focal motor deficits. Normal speech. Gait is normal. Strength is normal. Vital Sign (Last 24 Hours) 06/24/24 20:05 Temp 98.6 Pulse 67 Resp 20 B/P (MAP) 132/90 Pulse Ox 100 O2 Delivery Room Air* O2 Flow Rate 0 FiO2 21 Laboratory: [ ] Laboratory: Test 06/24/24 22:04 06/24/24 20:27 06/24/24 19:37 06/24/24 19:02 Range/Units Hemoglobin 11.9 L 14.0-18.0 g/dL Hematocrit 35.8 L 42-54 % Urine Color YELLOW YELLOW Urine Appearance CLEAR CLEAR Urine pH 5.0 5.0-8.0 Urine Specific [place] 1.027 1.001-1.031 Urine Protein NEGATIVE NEGATIVE mg/dL Urine Glucose (UA) NEGATIVE NEGATIVE mg/dL Urine Ketones NEGATIVE NEGATIVE mg/dL Urine Occult Blood NEGATIVE NEGATIVE Urine Nitrate NEGATIVE NEGATIVE Urine Bilirubin NEGATIVE NEGATIVE mg/dL Urine Urobilinogen 0.2 0.2-1.0 mg/dL Urine Leukocyte Esterase NEGATIVE NEGATIVE Sanjuana/uL Urine RBC 0-1 0-1 /HPF Urine WBC 2-5 H 0-1 /HPF Urine Squamous Epithelial Cells RARE 0-2 /HPF Urine Bacteria None None Seen /HPF Stool Occult Blood POSITIVE H NEGATIVE White Blood Count 9.0 4.8-10.8 K/uL Red Blood Count 3.99 L 4.50-6.20 MIL/uL Mean Corpuscular Volume 95.2 79-99 fL Mean Corpuscular Hemoglobin 31.8 27.0-33.0 pg Mean Corpuscular Hemoglobin Concent 33.4 32.0-36.0 g/dL Red Cell Distribution Width 13.5 11.0-15.5 % Platelet Count 218 130-400 K/uL Mean Platelet Volume 10.8 H 7.5-10.5 fL Immature Granulocyte % (Auto) 0.3 0-1 % Neutrophils (%) (Auto) 62.5 40.0-77.0 % Lymphocytes (%) (Auto) 26.9 21.0-51.0 % Monocytes (%) (Auto) 7.1 3.0-13.0 % Eosinophils (%) (Auto) 2.5 0.0-8.0 % Basophils (%) (Auto) 0.7 0.0-5.0 % Neutrophils # (Auto) 5.6 1.8-7.7 K/uL Lymphocytes # (Auto) 2.4 1.0-4.8 K/uL Monocytes # (Auto) 0.6 0.1-1.0 K/uL Eosinophils # (Auto) 0.23 0.00-0.70 K/uL Basophils # (Auto) 0.06 0.00-0.20 K/uL Absolute Immature Granulocyte (auto 0.03 0-1 K/uL Nucleated Red Blood Cells 0.0 0.0-0.19 % Prothrombin Time 10.6 9.6-11.6 SEC Prothromb Time International Ratio 1.00 0.85-1.15 Activated Partial Thromboplast Time 28.3 26.3-35.5 SEC Sodium Level 140 136-145 mmol/L Potassium Level 4.0 3.5-5.1 mmol/L Chloride Level 107 101-111 mmol/L Carbon Dioxide Level 28 21-32 mmol/L Blood Urea Nitrogen 19 H 7-18 mg/dL Creatinine 0.8 0.5-1.3 mg/dL Glomerular Filtration Rate Calc 89 >90 mL/min Random Glucose 133 H 70-105 mg/dL Total Calcium 8.9 8.5-10.1 mg/dL Total Bilirubin 0.5 0.2-1.0 mg/dL Direct Bilirubin 0.1 0.0-0.3 mg/dL Aspartate Amino Transf (AST/SGOT) 19 10-37 U/L Alanine Aminotransferase (ALT/SGPT) 21 12-78 U/L Alkaline Phosphatase 79 50-136 U/L Total Creatine Kinase 72 21-232 U/L Troponin I High Sensitivity 7.0 4-75 ng/L B-Type Natriuretic Peptide 21 0-100 pg/mL Total Protein 7.0 6.0-8.3 g/dL Albumin 3.3 L 3.5-5.0 g/dL Current Medications Medications (Trade) Dose Ordered Sig/Saranya Route PRN Reason Start Time Stop Time Status Last Admin Dose Admin Hydralazine HCl (APRESOLine 20MG INJ) 10 mg Q6H PRN IV For:SBP above 160;DBP above 90 06/24/24 22:00 07/24/24 21:59 Ondansetron HCl (zoFRAN 4MG INJ) 4 mg Q6H PRN IV NAUSEA/VOMITING 06/24/24 22:00 07/24/24 21:59 Pantoprazole Sodium (PROTonix 40MG INJ) 80 mg ONCE IVP 06/24/24 19:00 06/24/24 20:54 DC 06/24/24 20:05 80 MG Pantoprazole Sodium 80 mg/ Sodium Chloride 100 ml @ 10 mls/hr AD IV 06/24/24 22:30 07/24/24 22:29 Pantoprazole Sodium 80 mg/ Sodium Chloride 100 ml @ 10 mls/hr Q10H IV 06/24/24 21:00 06/24/24 21:49 DC Pantoprazole Sodium 80 mg/ Sodium Chloride 100 ml @ 10 mls/hr Q10H IVP 06/24/24 21:00 06/24/24 20:48 DC Sodium Chloride 1,000 ml @ 100 mls/hr Q10H IV 06/24/24 22:00 07/24/24 21:59 Diagnostics / Radiology: [COPY/PASTE HERE IF NO REPORTS PLEASE DELETE SECTION] Assessment: Hematochezia Severe diverticulosis Plan: Plan for colonoscopy to be done Monday Clear liquid diet YNES WORTHY [facility] Jun 24, 2024 22:37
[2024-06-24] MEDS: PANTOPrazole 40MG INJ 80 MG in 0.9%NACL 100ML 100 ML IV SCH (23:00)
[2024-06-24] MEDS: 0.9%NACL 1000ML 1,000 ML IV SCH (23:00)
--- NOTE | 2024-06-25 08:14 | PN ---
GASTROENTEROLOGY PROGRESS NOTE Date of Visit: Jun 25, 2024 Time of Visit: 08:13 Events / Notes: No acute events overnight. Patient seen today in the ER no acute distress. Denies abdominal pain. Bleeding has subsided today. He is agreeable to colonoscopy. Hemoglobin trended down to 10. Review of Systems: CONSTITUTIONAL: No malaise or change in sensation of wellbeing. ENMT: No rhinorrhea, otorrhea, sinus pain, ear ache. CARDIOVASCULAR: No angina, palpitations, orthopnea or paroxysmal dyspnea. RESPIRATORY: No SOB. GASTROINTESTINAL: No abdominal pain, nausea, vomiting, diarrhea, hematemesis, melena or change in the patient's habitual bowel movements consistency/number. GENITOURINARY: No dysuria, hematuria or change in bladder continence. MUSCULOSKELETAL: No new muscle pain or decrease in muscular strength. No new joint swelling, redness or tenderness. SKIN: No new rash. Physical Exam: GEN: Awake, alert, oriented in person, time and place, and in no acute distress. HEENT: No sinus tenderness. Tympanic membranes were not examined. No rhinorrhea. Oral pharyngeal mucosa is pink, moist and within normal limits. Neck is supple with no cervical lymphadenopathy, thyromegaly or JVD. CHEST: Inspection, palpation and percussion of the chest were unremarkable. Lung auscultation revealed normal breath sounds bilaterally. CARDIAC: PMI is within normal limits. Heart sounds are regular. Normal S1, S2. No gallop or murmur. ABD: Soft, non-tender and not distended. No peritoneal signs on palpation. No organomegaly. Normal bowel sounds. EXT: No cyanosis or clubbing. No edema. SKIN: Intact. No rashes. JOINTS: No evidence of synovitis or acute arthritis. NEURO: Alert and oriented to name, place and person. Cranial nerve examination is unremarkable. No focal motor deficits. Normal speech. Gait is normal. Strength is normal. Vital Signs (last 8hr) Date Time Temp Pulse Resp B/P (MAP) Pulse Ox O2 Delivery O2 Flow Rate FiO2 06/25/24 07:38 97.9 68 16 100/55 98 Room Air* 0 21 06/25/24 06:40 60 16 107/59 98 Room Air* 0 21 06/25/24 05:15 73 18 115/65 97 Room Air* 0 21 Laboratory: [ ] Laboratory: Test 06/24/24 22:04 3/10/25 20:27 06/24/24 19:37 06/24/24 19:02 Range/Units Hemoglobin 11.9 L 14.0-18.0 g/dL Hematocrit 35.8 L 42-54 % Urine Color YELLOW YELLOW Urine Appearance CLEAR CLEAR Urine pH 5.0 5.0-8.0 Urine Specific [place] 1.027 1.001-1.031 Urine Protein NEGATIVE NEGATIVE mg/dL Urine Glucose (UA) NEGATIVE NEGATIVE mg/dL Urine Ketones NEGATIVE NEGATIVE mg/dL Urine Occult Blood NEGATIVE NEGATIVE Urine Nitrate NEGATIVE NEGATIVE Urine Bilirubin NEGATIVE NEGATIVE mg/dL Urine Urobilinogen 0.2 0.2-1.0 mg/dL Urine Leukocyte Esterase NEGATIVE NEGATIVE Sanjuana/uL Urine RBC 0-1 0-1 /HPF Urine WBC 2-5 H 0-1 /HPF Urine Squamous Epithelial Cells RARE 0-2 /HPF Urine Bacteria None None Seen /HPF Stool Occult Blood POSITIVE H NEGATIVE White Blood Count 9.0 4.8-10.8 K/uL Red Blood Count 3.99 L 4.50-6.20 MIL/uL Mean Corpuscular Volume 95.2 79-99 fL Mean Corpuscular Hemoglobin 31.8 27.0-33.0 pg Mean Corpuscular Hemoglobin Concent 33.4 32.0-36.0 g/dL Red Cell Distribution Width 13.5 11.0-15.5 % Platelet Count 218 130-400 K/uL Mean Platelet Volume 10.8 H 7.5-10.5 fL Immature Granulocyte % (Auto) 0.3 0-1 % Neutrophils (%) (Auto) 62.5 40.0-77.0 % Lymphocytes (%) (Auto) 26.9 21.0-51.0 % Monocytes (%) (Auto) 7.1 3.0-13.0 % Eosinophils (%) (Auto) 2.5 0.0-8.0 % Basophils (%) (Auto) 0.7 0.0-5.0 % Neutrophils # (Auto) 5.6 1.8-7.7 K/uL Lymphocytes # (Auto) 2.4 1.0-4.8 K/uL Monocytes # (Auto) 0.6 0.1-1.0 K/uL Eosinophils # (Auto) 0.23 0.00-0.70 K/uL Basophils # (Auto) 0.06 0.00-0.20 K/uL Absolute Immature Granulocyte (auto 0.03 0-1 K/uL Nucleated Red Blood Cells 0.0 0.0-0.19 % Prothrombin Time 10.6 9.6-11.6 SEC Prothromb Time International Ratio 1.00 0.85-1.15 Activated Partial Thromboplast Time 28.3 26.3-35.5 SEC Sodium Level 140 136-145 mmol/L Potassium Level 4.0 3.5-5.1 mmol/L Chloride Level 107 101-111 mmol/L Carbon Dioxide Level 28 21-32 mmol/L Blood Urea Nitrogen 19 H 7-18 mg/dL Creatinine 0.8 0.5-1.3 mg/dL Glomerular Filtration Rate Calc 89 >90 mL/min Random Glucose 133 H 70-105 mg/dL Total Calcium 8.9 8.5-10.1 mg/dL Total Bilirubin 0.5 0.2-1.0 mg/dL Direct Bilirubin 0.1 0.0-0.3 mg/dL Aspartate Amino Transf (AST/SGOT) 19 10-37 U/L Alanine Aminotransferase (ALT/SGPT) 21 12-78 U/L Alkaline Phosphatase 79 50-136 U/L Total Creatine Kinase 72 21-232 U/L Troponin I High Sensitivity 7.0 4-75 ng/L B-Type Natriuretic Peptide 21 0-100 pg/mL Total Protein 7.0 6.0-8.3 g/dL Albumin 3.3 L 3.5-5.0 g/dL Current Medications Medications (Trade) Dose Ordered Sig/Saranya Route PRN Reason Start Time Stop Time Status Last Admin Dose Admin Hydralazine HCl (APRESOLine 20MG INJ) 10 mg Q6H PRN IV For:SBP above 160;DBP above 90 06/24/24 22:00 07/24/24 21:59 Ondansetron HCl (zoFRAN 4MG INJ) 4 mg Q6H PRN IV NAUSEA/VOMITING 06/24/24 22:00 07/24/24 21:59 Pantoprazole Sodium (PROTonix 40MG INJ) 80 mg ONCE IVP 06/24/24 19:00 06/24/24 20:54 DC 06/24/24 20:05 80 MG Pantoprazole Sodium 80 mg/ Sodium Chloride 100 ml @ 10 mls/hr AD IV 06/24/24 22:30 07/24/24 22:29 06/24/24 23:00 10 MLS/HR Pantoprazole Sodium 80 mg/ Sodium Chloride 100 ml @ 10 mls/hr Q10H IV 06/24/24 21:00 06/24/24 21:49 DC Pantoprazole Sodium 80 mg/ Sodium Chloride 100 ml @ 10 mls/hr Q10H IVP 06/24/24 21:00 06/24/24 20:48 DC Sodium Chloride 1,000 ml @ 100 mls/hr Q10H IV 06/24/24 22:00 07/24/24 21:59 06/24/24 23:00 100 MLS/HR Diagnostics / Radiology: [COPY/PASTE HERE IF NO REPORTS PLEASE DELETE SECTION] Assessment: Hematochezia Severe diverticulosis Plan: Colonoscopy in am Continue GI prophylaxis Avoid NSAIDs Antireflux measures Monitor H&H and transfuse as needed Call with questions, concerns or change in clinical status Patient to follow-up at clinic post discharge Thank you for this consult YNES WORTHY [employer] Jun 25, 2024 08:13
[2024-06-25 09:21] LABS: BASOPHILS # (AUTO) 0.03 K/uL (0.00-0.20); BASOPHILS % (AUTO) 0.4 % (0.0-5.0); EOSINOPHILS % (AUTO) 1.4 % (0.0-8.0); HEMATOCRIT 31.3 % (42-54); IMMATURE GRANULOCYTE ABSOLUTE 0.02 K/uL (0-1); LYMPHOCYTES # (AUTO) 2.4 K/uL (1.0-4.8); LYMPHOCYTES % (AUTO) 31.9 % (21.0-51.0); MEAN CORPUSCULAR HEMOGLOBIN 31.7 pg (27.0-33.0); MEAN CORPUSCULAR HGB CONC 33.5 g/dL (32.0-36.0); MEAN CORPUSCULAR VOLUME 94.6 fL (79-99); MONOCYTES # (AUTO) 0.6 K/uL (0.1-1.0); NEUTROPHILS # (AUTO) 4.3 K/uL (1.8-7.7); PLATELET COUNT (AUTO) 188 K/uL (130-400); RED BLOOD CELL COUNT(AUTO) 3.31 MIL/uL (4.50-6.20); RED CELL DISTRIBUTION WIDTH 13.7 % (11.0-15.5); WHITE BLOOD COUNT (AUTO) 7.4 K/uL (4.8-10.8)
[2024-06-25 09:36] LABS: ALBUMIN 2.9 g/dL (3.5-5.0); BILIRUBIN,TOTAL 0.6 mg/dL (0.2-1.0); CREATININE 0.7 mg/dL (0.5-1.3); MAGNESIUM 1.7 mg/dL (1.80-2.40); TOTAL PROTEIN, SERUM 5.9 g/dL (6.0-8.3)
--- NOTE | 2024-06-25 10:37 | NUR ---
DCP: HOME Pt is a [place], is seen at [place] by Dr Kaufman for medical care and meds. Pt reports he had CABG done in October. States he is able to complete ADLS on his own and Melody [phone] assists pt as needed, but may need to get assistance to do lawn at his home. Pt denies need for DME, HH, or providers at this time. Pt or drive to MD appts. Pt denies need for SNF, states he plans to [place] at [place]. Addendum: 06/25/24 at 1038 by VITO ARGUELLES Amended: Links added.
[2024-06-25] MEDS: PANTOPrazole 40MG INJ 80 MG in 0.9%NACL 100ML 100 ML IV SCH (12:05)
--- NOTE | 2024-06-25 16:13 | PN ---
[facility] PROGRESS NOTE Date of Service: Jun 25, 2024 Time of Service: 16:12 SUBJECTIVE: [ ] 3.03/11 patient was seen and examined in the ER. Case discussed with RN and by the bedside. He is doing much better. He reports that the the last bowel movement he had there was no blood in it. His hemoglobin is stable. He had a colonoscopy on April 22 of this year. GI is planning to take him for repeat scope tomorrow REVIEW OF SYSTEMS CONSTITUTIONAL: Denies fevers, chills, or night sweats. No unintentional weight loss reported. NEUROLOGICAL: Denies headache, amaurosis fugax, motor weakness, sensory deficit, vertigo/spinning sensation, gait abnormalities, or tremors. ENT: No hearing loss, otalgia, otorrhea, rhinitis, rhinorrhea, hoarseness, or sore throat. CARDIOVASCULAR: Denies any exertional angina, dyspnea on exertion, orthopnea, paroxysmal nocturnal dyspnea, palpitations, life-threatening arrhythmias, claudication. PULMONARY: Denies any shortness of breath, cough, phlegm/sputum, hemoptysis, pleuritic chest pain. SLEEP: Denies morning headaches, daytime somnolence or napping. Denies difficulty falling asleep, staying asleep, waking from sleep. Denies knowledge of snoring. GASTROINTESTINAL: Denies any type of dysphagia to either liquids or solids. Denies nausea, vomiting, pyrosis, early satiety, abdominal pain, diarrhea, constipation, or changes in stool consistency or caliber. Denies coffee-ground emesis, hematemesis, hematochezia, or melanotic stools. GENITOURINARY: Denies frequency, urgency, nocturia, hematuria or incontinence ( Storage/Irritative symptoms.) Low urinary stream, straining to void, urinary intermittency or hesitancy, splitting of the voiding stream, terminal dribbling. ENDOCRINOLOGIC: Denies polyuria, polydipsia, polyphagia or heat/cold intolerances. HEMATOLOGIC: Denies thrombophilia/previous clots, or coagulopathy/bleeding disorders. ONCOLOGIC: Denies personal history of malignancy. DERMATOLOGIC: Denies rashes or pruritus. PSYCHIATRIC: Denies any suicidal or homicidal ideation. Denies hallucinations. PHYSICAL EXAM GENERAL APPEARANCE: The patient is awake, alert, and oriented, in no acute cardiopulmonary distress. NEUROLOGICAL: Cranial nerves II-XII grossly intact. Motor is 5/5 in bilateral upper and lower extremities proximal to distal. No sensory deficits. HEENT: Face is symmetric. Pupils are equal and reactive. Extraocular movements are intact. NECK: Supple. No JVD. No thyromegaly. No submental, submandibular, pre- /postauricular, occipital or supraclavicular lymphadenopathy. CHEST: Normal chest expansion. No Telemetry. LUNGS: Absence of any rales, rhonchi or any wheezing. CARDIOVASCULAR: Regular. S1 and S2 normal. No appreciable rubs, murmurs or gallops. ABDOMEN: Soft, nontender, and nondistended. There is no rebound, voluntary guarding, or rigidity. : Deferred. No Dawson. EXTREMITIES: Non-edematous and not cyanotic. No clubbing. Good capillary refill. SKIN: No skin breakdown. Vital Signs (last 8hr) Date Time Temp Pulse Resp B/P (MAP) Pulse Ox O2 Delivery O2 Flow Rate FiO2 06/25/24 12:18 97.9 65 16 122/69 98 Room Air* 0 21 LABS: Laboratory: Test 06/25/24 09:12 06/24/24 20:27 06/24/24 19:37 06/24/24 19:02 Range/Units White Blood Count 7.4 4.8-10.8 K/uL Red Blood Count 3.31 L 4.50-6.20 MIL/uL Hemoglobin 10.5 L 14.0-18.0 g/dL Hematocrit 31.3 L 42-54 % Mean Corpuscular Volume 94.6 79-99 fL Mean Corpuscular Hemoglobin 31.7 27.0-33.0 pg Mean Corpuscular Hemoglobin Concent 33.5 32.0-36.0 g/dL Red Cell Distribution Width 13.7 11.0-15.5 % Platelet Count 188 130-400 K/uL Mean Platelet Volume 11.1 H 7.5-10.5 fL Immature Granulocyte % (Auto) 0.3 0-1 % Neutrophils (%) (Auto) 58.0 40.0-77.0 % Lymphocytes (%) (Auto) 31.9 21.0-51.0 % Monocytes (%) (Auto) 8.0 3.0-13.0 % Eosinophils (%) (Auto) 1.4 0.0-8.0 % Basophils (%) (Auto) 0.4 0.0-5.0 % Neutrophils # (Auto) 4.3 1.8-7.7 K/uL Lymphocytes # (Auto) 2.4 1.0-4.8 K/uL Monocytes # (Auto) 0.6 0.1-1.0 K/uL Eosinophils # (Auto) 0.10 0.00-0.70 K/uL Basophils # (Auto) 0.03 0.00-0.20 K/uL Absolute Immature Granulocyte (auto 0.02 0-1 K/uL Nucleated Red Blood Cells 0.0 0.0-0.19 % Sodium Level 139 136-145 mmol/L Potassium Level 4.0 3.5-5.1 mmol/L Chloride Level 108 101-111 mmol/L Carbon Dioxide Level 27 21-32 mmol/L Blood Urea Nitrogen 19 H 7-18 mg/dL Creatinine 0.7 0.5-1.3 mg/dL Glomerular Filtration Rate Calc 93 >90 mL/min Random Glucose 102 70-105 mg/dL Total Calcium 8.6 8.5-10.1 mg/dL Magnesium Level 1.70 L 1.80-2.40 mg/dL Total Bilirubin 0.6 0.2-1.0 mg/dL Aspartate Amino Transf (AST/SGOT) 16 10-37 U/L Alanine Aminotransferase (ALT/SGPT) 19 12-78 U/L Alkaline Phosphatase 66 50-136 U/L Total Protein 5.9 L 6.0-8.3 g/dL Albumin 2.9 L 3.5-5.0 g/dL Urine Color YELLOW YELLOW Urine Appearance CLEAR CLEAR Urine pH 5.0 5.0-8.0 Urine Specific [place] 1.027 1.001-1.031 Urine Protein NEGATIVE NEGATIVE mg/dL Urine Glucose (UA) NEGATIVE NEGATIVE mg/dL Urine Ketones NEGATIVE NEGATIVE mg/dL Urine Occult Blood NEGATIVE NEGATIVE Urine Nitrate NEGATIVE NEGATIVE Urine Bilirubin NEGATIVE NEGATIVE mg/dL Urine Urobilinogen 0.2 0.2-1.0 mg/dL Urine Leukocyte Esterase NEGATIVE NEGATIVE Sanjuana/uL Urine RBC 0-1 0-1 /HPF Urine WBC 2-5 H 0-1 /HPF Urine Squamous Epithelial Cells RARE 0-2 /HPF Urine Bacteria None None Seen /HPF Stool Occult Blood POSITIVE H NEGATIVE Prothrombin Time 10.6 9.6-11.6 SEC Prothromb Time International Ratio 1.00 0.85-1.15 Activated Partial Thromboplast Time 28.3 26.3-35.5 SEC Direct Bilirubin 0.1 0.0-0.3 mg/dL Total Creatine Kinase 72 21-232 U/L Troponin I High Sensitivity 7.0 4-75 ng/L B-Type Natriuretic Peptide 21 0-100 pg/mL Current Medications Medications (Trade) Dose Ordered Sig/Saranya Route PRN Reason Start Time Stop Time Status Last Admin Dose Admin Hydralazine HCl (APRESOLine 20MG INJ) 10 mg Q6H PRN IV For:SBP above 160;DBP above 90 06/24/24 22:00 07/24/24 21:59 Ondansetron HCl (zoFRAN 4MG INJ) 4 mg Q6H PRN IV NAUSEA/VOMITING 06/24/24 22:00 07/24/24 21:59 Pantoprazole Sodium (PROTonix 40MG INJ) 80 mg ONCE IVP 06/24/24 19:00 06/24/24 20:54 DC 06/24/24 20:05 80 MG Pantoprazole Sodium 80 mg/ Sodium Chloride 100 ml @ 10 mls/hr AD IV 06/24/24 22:30 06/25/24 11:41 DC 06/24/24 23:00 10 MLS/HR Pantoprazole Sodium 80 mg/ Sodium Chloride 100 ml @ 10 mls/hr Q10H IV 06/24/24 21:00 06/24/24 21:49 DC Pantoprazole Sodium 80 mg/ Sodium Chloride 100 ml @ 10 mls/hr Q10H IV 06/25/24 12:00 07/24/24 22:29 06/25/24 12:05 10 MLS/HR Pantoprazole Sodium 80 mg/ Sodium Chloride 100 ml @ 10 mls/hr Q10H IVP 06/24/24 21:00 06/24/24 20:48 DC Sodium Chloride 1,000 ml @ 100 mls/hr Q10H IV 06/24/24 22:00 07/24/24 21:59 06/25/24 09:34 100 MLS/HR DIAGNOSTICS / RADIOLOGY: [ ] ASSESSMENT: Acute GI bleed POA Hypertension POA Hyperlipidemia POA Hypothyroidism POA GERD POA Obstructive sleep apnea on CPAP POA Coronary artery disease with CABG x3 POA History of polyp POA PLAN: We will admit patient in medical telemetry We will keep patient nothing by mouth We will start on Protonix drip We will start NS @ 100 ml / hr x2 bags and re evaluate We will replace electrolytes as needed per protocol We will add prn medication for fever,pain,cough, nausea and vomiting We will reconcile home meds once medlist available We will seek gastroenterology consultation We will do serial H and H x3 We will do H&H p.r.n. bleeding We will transfuse with PRBC to keep hemoglobin above seven We will request labs in am Further orders to follow depending on above results Case discussed with attending physician and came up with above treatment and plan of care. CLARIBEL RUVALCABA MD Jun 25, 2024 16:13
[2024-06-25] MEDS: PEG 3350/NA SULF,BICARB,CL/KCL 4000 ML SOLN PO STA (21:45)
[2024-06-26] VITALS (19 sets, daily range): BP systolic 92–131; BP diastolic 58–84; PULSE 59–102; RESP 14–18; TEMP 97.7–98.2; O2SAT 96–98
[2024-06-26 06:00] LABS: BASOPHILS # (AUTO) 0.05 K/uL (0.00-0.20); BASOPHILS % (AUTO) 0.7 % (0.0-5.0); EOSINOPHILS # (AUTO) 0.23 K/uL (0.00-0.70); HEMATOCRIT 29.7 % (42-54); IMMATURE GRANULOCYTE ABSOLUTE 0.01 K/uL (0-1); LYMPHOCYTES # (AUTO) 2.5 K/uL (1.0-4.8); LYMPHOCYTES % (AUTO) 32.3 % (21.0-51.0); MEAN CORPUSCULAR HEMOGLOBIN 31.6 pg (27.0-33.0); MEAN CORPUSCULAR HGB CONC 33.3 g/dL (32.0-36.0); MEAN CORPUSCULAR VOLUME 94.9 fL (79-99); MONOCYTES # (AUTO) 0.6 K/uL (0.1-1.0); MONOCYTES % (AUTO) 7.9 % (3.0-13.0); NEUTROPHILS # (AUTO) 4.3 K/uL (1.8-7.7); PLATELET COUNT (AUTO) 186 K/uL (130-400); RED BLOOD CELL COUNT(AUTO) 3.13 MIL/uL (4.50-6.20); RED CELL DISTRIBUTION WIDTH 13.9 % (11.0-15.5); WHITE BLOOD COUNT (AUTO) 7.6 K/uL (4.8-10.8)
[2024-06-26 06:04] LABS: INR 1.03 (0.85-1.15); PROTHROMBIN TIME 10.9 SEC (9.6-11.6)
[2024-06-26 06:05] LABS: PARTIAL THROMBOPLASTIN TIME 27.2 SEC (26.3-35.5)
[2024-06-26 06:15] LABS: CREATININE 0.8 mg/dL (0.5-1.3); POTASSIUM 3.7 mmol/L (3.5-5.1)
[2024-06-26] MEDS: furoSEMIDE 20 MG TABLET PO SCH (09:00)
--- NOTE | 2024-06-26 09:00 | NUR ---
LASIX NOT GIVEN HE IS HEADED TO COLONOSCOPY.
[2024-06-26] MEDS ORDERED: proPOFol 10 MG/ML 20ML VIAL IV ONE ×2 (10:27→10:28)
[2024-06-26] MEDS ORDERED: COMPOUND IV MISC 1 EACH IVSOLN MISC PRN (13:30)
[2024-06-26] MEDS ORDERED: COMPOUND IV REFRIGERATED 1 EACH IVSOLN MISC PRN (13:30)
--- NOTE | 2024-06-26 15:46 | PN ---
[facility] PROGRESS NOTE Date of Service: Jun 26, 2024 Time of Service: 15:35 SUBJECTIVE: This is an 79-year-old male with past medical history of hyperlipidemia, hypothyroidism, BPH, kidney stone stone, GERD, asthma, basal cell carcinoma, hypertension, obesity, obstructive sleep apnea on CPAP at home and coronary artery disease with CABG x3 who presents to the ED today for complaints of bloody stool. Patient reports he has seven episodes of bloody stool today. Patient states last Monday he was constipated and when he went to the restroom and wiped himself he noticed blood in the toilet paper and today he started having loose stool and he noticed bright red with some tiny clots on the toilet.Patient states this is the first time he experienced this and he somet imes felt dizzy when he got up .Patient states he went to see a Nurse practitioner at [facility] and did some blood work and he received a call and was instructed to come to the ED for evaluation.Patient also reports having abdominal gurgling sound mostly around his left lower abdominal quadrant and denies abdominal pain.Patient states he is taking daily Aspirin 81 mg po and last dose taken was this morning he said.Patient had a colonoscopy with polyp removal on 2022.Patient also reports he has an appointment with Dr. Dedrick Tovar in 2 weeks. Seen and examined patient in the ER awake,alert,coherent and ambulatory. Melody was at bedside during my evaluation.Patient denies fever, chills, nausea, vomiting blood,abdominal pain,chest pain,palpitation and shortness of breath. Latest Vital signs Temperature 98.6, heart rate 67, blood pressure 132/90, saturation 100% on room air. Hemoglobin 12.7,11.9, hematocrit 38 to 35.8, platelet count 218. BUN 19, GFR 89, glucose 133, BNP 21, troponin seven albumin 3.3. Fecal occult blood +positive. Chest x-ray is normal. CT abdomen and pelvis without contrast result revealed diverticulosis of the colon particularly involving the sigmoid. While in the ER patient received Protonix 80 mg IV push started on Protonix drip. We will admit patient for further medical management. 3 patient was seen and examined in the ER. Case discussed with RN and by the bedside. He is doing much better. He reports that the the last bowel movement he had there was no blood in it. His hemoglobin is stable. He had a colonoscopy on April 22 of this year. GI is planning to take him for repeat scope tomorrow 06/26/2024 - patient is seen at bedside in room 322. Patient has come back from colonoscopy which revealed hematin in sigmoid, descending colon regions suggesting for possible diverticular bleed. Gastroenterology recommended no NSAIDs or anticoagulation. Patient is currently on clear liquid diet will be transition to full liquid diet tomorrow and advance as he tolerates. Patient is hemodynamically stable, labs are unremarkable. We will continue to monitor H and H, hemoglobin today is 9.9. REVIEW OF SYSTEMS CONSTITUTIONAL: Denies fevers, chills, or night sweats. No unintentional weight loss reported. NEUROLOGICAL: Denies headache, amaurosis fugax, motor weakness, sensory deficit, vertigo/spinning sensation, gait abnormalities, or tremors. ENT: No hearing loss, otalgia, otorrhea, rhinitis, rhinorrhea, hoarseness, or sore throat. CARDIOVASCULAR: Denies any exertional angina, dyspnea on exertion, orthopnea, paroxysmal nocturnal dyspnea, palpitations, life-threatening arrhythmias, claudication. PULMONARY: Denies any shortness of breath, cough, phlegm/sputum, hemoptysis, pleuritic chest pain. SLEEP: Denies morning headaches, daytime somnolence or napping. Denies difficulty falling asleep, staying asleep, waking from sleep. Denies knowledge of snoring. GASTROINTESTINAL: Denies any type of dysphagia to either liquids or solids. Denies nausea, vomiting, pyrosis, early satiety, abdominal pain, diarrhea, constipation, or changes in stool consistency or caliber. Denies coffee-ground emesis, hematemesis, hematochezia, or melanotic stools. GENITOURINARY: Denies frequency, urgency, nocturia, hematuria or incontinence (Storage/Irritative symptoms.) Low urinary stream, straining to void, urinary intermittency or hesitancy, splitting of the voiding stream, terminal dribbling. ENDOCRINOLOGIC: Denies polyuria, polydipsia, polyphagia or heat/cold intolerances. HEMATOLOGIC: Denies thrombophilia/previous clots, or coagulopathy/bleeding disorders. ONCOLOGIC: Denies personal history of malignancy. DERMATOLOGIC: Denies rashes or pruritus. PSYCHIATRIC: Denies any suicidal or homicidal ideation. Denies hallucinations. PHYSICAL EXAM GENERAL APPEARANCE: The patient is awake, alert, and oriented, in no acute cardiopulmonary distress. NEUROLOGICAL: Cranial nerves II-XII grossly intact. Motor is 5/5 in bilateral upper and lower extremities proximal to distal. No sensory deficits. HEENT: Face is symmetric. Pupils are equal and reactive. Extraocular movements are intact. NECK: Supple. No JVD. No thyromegaly. No submental, submandibular, pre- /postauricular, occipital or supraclavicular lymphadenopathy. CHEST: Normal chest expansion. No Telemetry. LUNGS: Absence of any rales, rhonchi or any wheezing. CARDIOVASCULAR: Regular. S1 and S2 normal. No appreciable rubs, murmurs or gallops. ABDOMEN: Soft, nontender, and nondistended. There is no rebound, voluntary guarding, or rigidity. : Deferred. No Dawson. EXTREMITIES: Non-edematous and not cyanotic. No clubbing. Good capillary refill. SKIN: No skin breakdown. Vital Signs (last 8hr) Date Time Temp Pulse Resp B/P (MAP) Pulse Ox O2 Delivery O2 Flow Rate FiO2 06/26/24 11:35 98.2 93 16 121/67 97 Room Air 06/26/24 11:30 95 17 123/69 97 Room Air 21 06/26/24 11:25 93 17 118/72 98 Room Air 21 06/26/24 11:20 94 15 120/73 100 Nonrebreathing Mask 10.0 100 06/26/24 11:15 91 17 102/69 100 Nonrebreathing Mask 10.0 100 06/26/24 11:10 88 16 107/72 100 Nonrebreathing Mask 10.0 100 06/26/24 11:05 98.1 86 14 93/66 100 Nonrebreathing Mask 10.0 100 06/26/24 10:38 Mask 06/26/24 10:38 Mask 10.0 06/26/24 10:03 98.4 55 18 119/70 97 Room Air* 0 21 06/26/24 09:00 98.4 61 18 129/74 97 Room Air* 0 21 06/26/24 07:50 98.4 61 16 129/72 97 Room Air* 0 21 LABS: Laboratory: Test 06/26/24 04:29 06/25/24 09:12 06/24/24 20:27 06/24/24 19:37 Range/Units White Blood Count 7.6 4.8-10.8 K/uL Red Blood Count 3.13 L 4.50-6.20 MIL/uL Hemoglobin 9.9 L 14.0-18.0 g/dL Hematocrit 29.7 L 42-54 % Mean Corpuscular Volume 94.9 79-99 fL Mean Corpuscular Hemoglobin 31.6 27.0-33.0 pg Mean Corpuscular Hemoglobin Concent 33.3 32.0-36.0 g/dL Red Cell Distribution Width 13.9 11.0-15.5 % Platelet Count 186 130-400 K/uL Mean Platelet Volume 11.1 H 7.5-10.5 fL Immature Granulocyte % (Auto) 0.1 0-1 % Neutrophils (%) (Auto) 56.0 40.0-77.0 % Lymphocytes (%) (Auto) 32.3 21.0-51.0 % Monocytes (%) (Auto) 7.9 3.0-13.0 % Eosinophils (%) (Auto) 3.0 0.0-8.0 % Basophils (%) (Auto) 0.7 0.0-5.0 % Neutrophils # (Auto) 4.3 1.8-7.7 K/uL Lymphocytes # (Auto) 2.5 1.0-4.8 K/uL Monocytes # (Auto) 0.6 0.1-1.0 K/uL Eosinophils # (Auto) 0.23 0.00-0.70 K/uL Basophils # (Auto) 0.05 0.00-0.20 K/uL Absolute Immature Granulocyte (auto 0.01 0-1 K/uL Nucleated Red Blood Cells 0.0 0.0-0.19 % Prothrombin Time 10.9 9.6-11.6 SEC Prothromb Time International Ratio 1.03 0.85-1.15 Activated Partial Thromboplast Time 27.2 26.3-35.5 SEC Sodium Level 144 136-145 mmol/L Potassium Level 3.7 3.5-5.1 mmol/L Chloride Level 109 101-111 mmol/L Carbon Dioxide Level 30 21-32 mmol/L Blood Urea Nitrogen 14 7-18 mg/dL Creatinine 0.8 0.5-1.3 mg/dL Glomerular Filtration Rate Calc 89 >90 mL/min Random Glucose 83 70-105 mg/dL Total Calcium 8.8 8.5-10.1 mg/dL Magnesium Level 1.70 L 1.80-2.40 mg/dL Total Bilirubin 0.6 0.2-1.0 mg/dL Aspartate Amino Transf (AST/SGOT) 16 10-37 U/L Alanine Aminotransferase (ALT/SGPT) 19 12-78 U/L Alkaline Phosphatase 66 50-136 U/L Total Protein 5.9 L 6.0-8.3 g/dL Albumin 2.9 L 3.5-5.0 g/dL Urine Color YELLOW YELLOW Urine Appearance CLEAR CLEAR Urine pH 5.0 5.0-8.0 Urine Specific [place] 1.027 1.001-1.031 Urine Protein NEGATIVE NEGATIVE mg/dL Urine Glucose (UA) NEGATIVE NEGATIVE mg/dL Urine Ketones NEGATIVE NEGATIVE mg/dL Urine Occult Blood NEGATIVE NEGATIVE Urine Nitrate NEGATIVE NEGATIVE Urine Bilirubin NEGATIVE NEGATIVE mg/dL Urine Urobilinogen 0.2 0.2-1.0 mg/dL Urine Leukocyte Esterase NEGATIVE NEGATIVE Sanjuana/uL Urine RBC 0-1 0-1 /HPF Urine WBC 2-5 H 0-1 /HPF Urine Squamous Epithelial Cells RARE 0-2 /HPF Urine Bacteria None None Seen /HPF Stool Occult Blood POSITIVE H NEGATIVE Test 06/24/24 19:02 Range/Units Direct Bilirubin 0.1 0.0-0.3 mg/dL Total Creatine Kinase 72 21-232 U/L Troponin I High Sensitivity 7.0 4-75 ng/L B-Type Natriuretic Peptide 21 0-100 pg/mL Current Medications Medications (Trade) Dose Ordered Sig/Saranya Route PRN Reason Start Time Stop Time Status Last Admin Dose Admin Atorvastatin Calcium (LIPItor 40MG) 40 mg HS PO 06/26/24 21:00 07/26/24 20:59 Furosemide (LASix 20MG TAB) 20 mg DAILY PO 06/26/24 09:00 07/26/24 08:59 Home Med (Home Medication) Alfuzosin HCl 10 MG HS PO 06/26/24 21:00 07/26/24 20:59 Hydralazine HCl (APRESOLine 20MG INJ) 10 mg Q6H PRN IV For:SBP above 160;DBP above 90 06/24/24 22:00 07/24/24 21:59 Levothyroxine Sodium (SYNTHroid 50MCG TAB) 50 mcg SYN PO 06/27/24 06:30 07/27/24 06:29 Ondansetron HCl (zoFRAN 4MG INJ) 4 mg Q6H PRN IV NAUSEA/VOMITING 06/24/24 22:00 07/24/24 21:59 Pantoprazole Sodium (PROTonix 40MG INJ) 80 mg ONCE IVP 06/24/24 19:00 06/24/24 20:54 DC 06/24/24 20:05 80 MG Pantoprazole Sodium 80 mg/ Sodium Chloride 100 ml @ 10 mls/hr AD IV 06/24/24 22:30 06/25/24 11:41 DC 06/24/24 23:00 10 MLS/HR Pantoprazole Sodium 80 mg/ Sodium Chloride 100 ml @ 10 mls/hr Q10H IV 06/24/24 21:00 06/24/24 21:49 DC Pantoprazole Sodium 80 mg/ Sodium Chloride 100 ml @ 10 mls/hr Q10H IV 06/25/24 12:00 07/24/24 22:29 06/25/24 12:05 10 MLS/HR Pantoprazole Sodium 80 mg/ Sodium Chloride 100 ml @ 10 mls/hr Q10H IVP 06/24/24 21:00 06/24/24 20:48 DC Polyethylene Glycol/ Electrolytes (Golytely/Colyte Soln) 4,000 ml ONCE STAT PO 06/25/24 18:54 06/25/24 18:56 DC 06/25/24 21:45 4,000 ML Sodium Chloride 1,000 ml @ 100 mls/hr Q10H IV 06/24/24 22:00 07/24/24 21:59 06/26/24 15:04 100 MLS/HR DIAGNOSTICS / RADIOLOGY: [ ] ASSESSMENT: Acute GI bleed POA Hypertension POA Hyperlipidemia POA Hypothyroidism POA GERD POA Obstructive sleep apnea on CPAP POA Coronary artery disease with CABG x3 POA History of polyp POA Internal hemorrhoids POA Diverticular bleed POA Sessile polyp in cecum POA Diverticulosis POA PLAN: Possible discharge tomorrow. Acute GI bleed, GERD, diverticular bleed, internal hemorrhoids Monitor H&H Continue clear liquid diet and advance to full liquid diet tomorrow Follow Gastroenterology recommendations No aspirin, ibuprofen, naproxen or NSAIDs No anticoagulation Obtain bleeding scan versus CT angiogram followed by embolization if bleeding occurs CABG, hypertension, hyperlipidemia Continue atorvastatin, furosemide Monitor vitals . ATTESTATION BY PHYSICIAN I have seen and examined the patient. I reviewed the documentation, medical decision making, and treatment plan as noted by the resident provider above. I agree with the findings and plan of care. Oswaldo Smith MD, KEERTI K MD Jun 26, 2024 15:46
[2024-06-26] MEDS ORDERED: OMEP40CA21 PO (19:49)
[2024-06-26] MEDS ORDERED: CARB-283 OU (19:49)
[2024-06-26] MEDS ORDERED: BISA-151 PO (19:49)
[2024-06-26] MEDS ORDERED: PRED10TA3 PO (19:49)
[2024-06-26] MEDS ORDERED: LID5O TP (19:49)
[2024-06-26] MEDS ORDERED: METH-811 PO (19:49)
[2024-06-26] MEDS ORDERED: KETO-99 OP (19:49)
[2024-06-26] MEDS: atorVAStatin 40 MG TABLET PO SCH (21:21)
[2024-06-27 00:18] VITALS: BP 143/63; PULSE 72; RESP 18; TEMP 98.2
[2024-06-27 04:00] VITALS: BP 98/58; PULSE 59; RESP 18; TEMP 97.2
[2024-06-27 04:20] VITALS: BP 98/58; PULSE 59; RESP 18; TEMP 97.2
[2024-06-27 05:58] LABS: BASOPHILS # (AUTO) 0.04 K/uL (0.00-0.20); BASOPHILS % (AUTO) 0.5 % (0.0-5.0); EOSINOPHILS # (AUTO) 0.25 K/uL (0.00-0.70); EOSINOPHILS % (AUTO) 3.2 % (0.0-8.0); HEMATOCRIT 27.6 % (42-54); IMMATURE GRANULOCYTE ABSOLUTE 0.03 K/uL (0-1); LYMPHOCYTES % (AUTO) 25.9 % (21.0-51.0); MEAN CORPUSCULAR HGB CONC 34.1 g/dL (32.0-36.0); MEAN CORPUSCULAR VOLUME 93.9 fL (79-99); MONOCYTES # (AUTO) 0.8 K/uL (0.1-1.0); MONOCYTES % (AUTO) 10.6 % (3.0-13.0); NEUTROPHILS # (AUTO) 4.6 K/uL (1.8-7.7); NEUTROPHILS % (AUTO) 59.4 % (40.0-77.0); PLATELET COUNT (AUTO) 164 K/uL (130-400); RED BLOOD CELL COUNT(AUTO) 2.94 MIL/uL (4.50-6.20); RED CELL DISTRIBUTION WIDTH 13.8 % (11.0-15.5); WHITE BLOOD COUNT (AUTO) 7.8 K/uL (4.8-10.8)
[2024-06-27 06:06] LABS: CREATININE 0.7 mg/dL (0.5-1.3); POTASSIUM 3.2 mmol/L (3.5-5.1)
[2024-06-27] MEDS: levoTHYROxine 50 MCG TABLET PO SCH (06:22)
--- NOTE | 2024-06-27 07:47 | PN ---
GASTROENTEROLOGY PROGRESS NOTE Date of Visit: Jun 27, 2024 Time of Visit: 07:47 Events / Notes: No acute events overnight. Patient seen today in the ER no acute distress. Denies abdominal pain. Bleeding has subsided today. He is agreeable to colonoscopy. Hemoglobin trended down to 10. Review of Systems: CONSTITUTIONAL: No malaise or change in sensation of wellbeing. ENMT: No rhinorrhea, otorrhea, sinus pain, ear ache. CARDIOVASCULAR: No angina, palpitations, orthopnea or paroxysmal dyspnea. RESPIRATORY: No SOB. GASTROINTESTINAL: No abdominal pain, nausea, vomiting, diarrhea, hematemesis, melena or change in the patient's habitual bowel movements consistency/number. GENITOURINARY: No dysuria, hematuria or change in bladder continence. MUSCULOSKELETAL: No new muscle pain or decrease in muscular strength. No new joint swelling, redness or tenderness. SKIN: No new rash. Physical Exam: GEN: Awake, alert, oriented in person, time and place, and in no acute distress. HEENT: No sinus tenderness. Tympanic membranes were not examined. No rhinorrhea. Oral pharyngeal mucosa is pink, moist and within normal limits. Neck is supple with no cervical lymphadenopathy, thyromegaly or JVD. CHEST: Inspection, palpation and percussion of the chest were unremarkable. Lung auscultation revealed normal breath sounds bilaterally. CARDIAC: PMI is within normal limits. Heart sounds are regular. Normal S1, S2. No gallop or murmur. ABD: Soft, non-tender and not distended. No peritoneal signs on palpation. No organomegaly. Normal bowel sounds. EXT: No cyanosis or clubbing. No edema. SKIN: Intact. No rashes. JOINTS: No evidence of synovitis or acute arthritis. NEURO: Alert and oriented to name, place and person. Cranial nerve examination is unremarkable. No focal motor deficits. Normal speech. Gait is normal. Strength is normal. Vital Signs (last 8hr) Date Time Temp Pulse Resp B/P (MAP) Pulse Ox O2 Delivery O2 Flow Rate FiO2 06/27/24 04:20 97.2 59 18 98/58 95 Room Air 06/27/24 04:00 97.2 59 18 98/58 95 Room Air 06/27/24 00:18 98.2 72 18 143/63 96 Room Air 21 Laboratory: [ ] Laboratory: Test 06/27/24 05:32 06/26/24 04:29 06/25/24 09:12 Range/Units White Blood Count 7.8 4.8-10.8 K/uL Red Blood Count 2.94 L 4.50-6.20 MIL/uL Hemoglobin 9.4 L 14.0-18.0 g/dL Hematocrit 27.6 L 42-54 % Mean Corpuscular Volume 93.9 79-99 fL Mean Corpuscular Hemoglobin 32.0 27.0-33.0 pg Mean Corpuscular Hemoglobin Concent 34.1 32.0-36.0 g/dL Red Cell Distribution Width 13.8 11.0-15.5 % Platelet Count 164 130-400 K/uL Mean Platelet Volume 10.7 H 7.5-10.5 fL Immature Granulocyte % (Auto) 0.4 0-1 % Neutrophils (%) (Auto) 59.4 40.0-77.0 % Lymphocytes (%) (Auto) 25.9 21.0-51.0 % Monocytes (%) (Auto) 10.6 3.0-13.0 % Eosinophils (%) (Auto) 3.2 0.0-8.0 % Basophils (%) (Auto) 0.5 0.0-5.0 % Neutrophils # (Auto) 4.6 1.8-7.7 K/uL Lymphocytes # (Auto) 2.0 1.0-4.8 K/uL Monocytes # (Auto) 0.8 0.1-1.0 K/uL Eosinophils # (Auto) 0.25 0.00-0.70 K/uL Basophils # (Auto) 0.04 0.00-0.20 K/uL Absolute Immature Granulocyte (auto 0.03 0-1 K/uL Nucleated Red Blood Cells 0.0 0.0-0.19 % Sodium Level 142 136-145 mmol/L Potassium Level 3.2 L 3.5-5.1 mmol/L Chloride Level 110 101-111 mmol/L Carbon Dioxide Level 27 21-32 mmol/L Blood Urea Nitrogen 7 7-18 mg/dL Creatinine 0.7 0.5-1.3 mg/dL Glomerular Filtration Rate Calc 93 >90 mL/min Random Glucose 80 70-105 mg/dL Total Calcium 8.8 8.5-10.1 mg/dL Prothrombin Time 10.9 9.6-11.6 SEC Prothromb Time International Ratio 1.03 0.85-1.15 Activated Partial Thromboplast Time 27.2 26.3-35.5 SEC Magnesium Level 1.70 L 1.80-2.40 mg/dL Total Bilirubin 0.6 0.2-1.0 mg/dL Aspartate Amino Transf (AST/SGOT) 16 10-37 U/L Alanine Aminotransferase (ALT/SGPT) 19 12-78 U/L Alkaline Phosphatase 66 50-136 U/L Total Protein 5.9 L 6.0-8.3 g/dL Albumin 2.9 L 3.5-5.0 g/dL Current Medications Medications (Trade) Dose Ordered Sig/Saranya Route PRN Reason Start Time Stop Time Status Last Admin Dose Admin Atorvastatin Calcium (LIPItor 40MG) 40 mg HS PO 06/26/24 21:00 07/26/24 20:59 06/26/24 21:21 40 MG Furosemide (LASix 20MG TAB) 20 mg DAILY PO 06/26/24 09:00 07/26/24 08:59 Home Med (Home Medication) Alfuzosin HCl 10 MG HS PO 06/26/24 21:00 07/26/24 20:59 Hydralazine HCl (APRESOLine 20MG INJ) 10 mg Q6H PRN IV For:SBP above 160;DBP above 90 06/24/24 22:00 07/24/24 21:59 Levothyroxine Sodium (SYNTHroid 50MCG TAB) 50 mcg SYN PO 06/27/24 06:30 07/27/24 06:29 06/27/24 06:22 50 MCG Ondansetron HCl (zoFRAN 4MG INJ) 4 mg Q6H PRN IV NAUSEA/VOMITING 06/24/24 22:00 07/24/24 21:59 Pantoprazole Sodium (PROTonix 40MG INJ) 80 mg ONCE IVP 06/24/24 19:00 06/24/24 20:54 DC 06/24/24 20:05 80 MG Pantoprazole Sodium 80 mg/ Sodium Chloride 100 ml @ 10 mls/hr AD IV 06/24/24 22:30 06/25/24 11:41 DC 06/24/24 23:00 10 MLS/HR Pantoprazole Sodium 80 mg/ Sodium Chloride 100 ml @ 10 mls/hr Q10H IV 06/24/24 21:00 06/24/24 21:49 DC Pantoprazole Sodium 80 mg/ Sodium Chloride 100 ml @ 10 mls/hr Q10H IV 06/25/24 12:00 06/26/24 19:51 DC 06/25/24 12:05 10 MLS/HR Pantoprazole Sodium 80 mg/ Sodium Chloride 100 ml @ 10 mls/hr Q10H IVP 06/24/24 21:00 06/24/24 20:48 DC Polyethylene Glycol/ Electrolytes (Golytely/Colyte Soln) 4,000 ml ONCE STAT PO 06/25/24 18:54 06/25/24 18:56 DC 06/25/24 21:45 4,000 ML Sodium Chloride 1,000 ml @ 100 mls/hr Q10H IV 06/24/24 22:00 07/24/24 21:59 06/27/24 01:08 100 MLS/HR Diagnostics / Radiology: [COPY/PASTE HERE IF NO REPORTS PLEASE DELETE SECTION] Assessment: Hematochezia Severe diverticulosis Plan: Colonoscopy in am Continue GI prophylaxis Avoid NSAIDs Antireflux measures Monitor H&H and transfuse as needed Call with questions, concerns or change in clinical status Patient to follow-up at clinic post discharge Thank you for this consult YNES WORTHY [employer] ACCOUNT MANAGER Jun 27, 2024 07:47
[2024-06-27 08:00] VITALS: BP 104/67; PULSE 58; RESP 18; TEMP 98.4; O2SAT 97
[2024-06-27 09:44] LABS: % IRON SATURATION 19.8 % (30-44)
[2024-06-27] MEDS: PoTASSium chl 10% ELIXIR 20MEQ 20 MEQ/15 ML UDCUP PO ONE (10:59)
[2024-06-27 12:00] VITALS: BP 111/68; PULSE 51; RESP 18; TEMP 98.4
--- NOTE | 2024-06-27 14:47 | DS ---
Discharge Summary Hospital Course Summary: This is an 79-year-old male with past medical history of hyperlipidemia, hypothyroidism, BPH, kidney stone stone, GERD, asthma, basal cell carcinoma, hypertension, obesity, obstructive sleep apnea on CPAP at home and coronary artery disease with CABG x3 who presents to the ED today for complaints of bloody stool. Patient reports he has seven episodes of bloody stool today. Patient states last Monday he was constipated and when he went to the restroom and wiped himself he noticed blood in the toilet paper and today he started having loose stool and he noticed bright red with some tiny clots on the toilet.Patient states this is the first time he experienced this and he sometimes felt dizzy when he got up .Patient states he went to see a Nurse practitioner at [facility] and did some blood work and he received a call and was instructed to come to the ED for evaluation.Patient also reports having abdominal gurgling sound mostly around his left lower abdominal quadrant and denies abdominal pain.Patient states he is taking daily Aspirin 81 mg po and last dose taken was this morning he said.Patient had a colonoscopy with polyp removal on 2022.Patient also reports he has an appointment with Dr. Dedrick Tovar in 2 weeks. Seen and examined patient in the ER awake,alert,coherent and ambulatory. eMlody was at bedside during my evaluation.Patient denies fever, chills, nausea, vomiting blood,abdominal pain,chest pain,palpitation and shortness of br eath. Latest Vital signs Temperature 98.6, heart rate 67, blood pressure 132/90, saturation 100% on room air. Hemoglobin 12.7,11.9, hematocrit 38 to 35.8, platelet count 218. BUN 19, GFR 89, glucose 133, BNP 21, troponin seven albumin 3.3. Fecal occult blood +positive. Chest x-ray is normal. CT abdomen and pelvis without contrast result revealed diverticulosis of the colon pa rticularly involving the sigmoid. While in the ER patient received Protonix 80 mg IV push started on Protonix drip. We will admit patient for further medical management. 3 patient was seen and examined in the ER. Case discussed with RN and by the bedside. He is doing much better. He reports that the the last bowel movement he had there was no blood in it. His hemoglobin is stable. He had a colonoscopy on April 22 of this year. GI is planning to take him for repeat scope tomorrow 06/26/2024 - patient is seen at bedside in room 322. Patient has come back from colonoscopy which revealed Hematin in sigmoid, descending colon regions suggesting for possible diverticular bleed. Gastroenterology recommended no NSAIDs or anticoagulation. Patient is currently on clear liquid diet will be transition to full liquid diet tomorrow and advance as he tolerates. Patient is hemodynamically stable, labs are unremarkable. We will continue to monitor H and H, hemoglobin today is 9.9. 06/27/2024 - patient is hemodynamically stable, hemoglobin trended at 9.4 . Patient is tolerating full liquid diet but did not have any bowel movement and the patient told that it is his pattern of having bowel movements once in every 3-4 days. Patient was informed about the Gastroenterology recommendations and is advised to continue on soft GI diet and is told to follow up with Gastroenterology as outpatient in 1 week. All the labs are unremarkable and patient is deemed stable to get discharged . Yarn Handler(s): Gastroenterology Procedure(s): PATIENT: PARK WING MR#: [id number] : 1945 SEX: M AGE: 79 LOCATION: [facility] ORDER 33 STATUS: REG ER REPORT#: [id number] SERVICE 30 REASON: sob ORDERING PHYSICIAN: DARELL ACHARYA PROCEDURE: CXR1VW - CHEST 1VW Exam Type: CHEST 1VW Clinical Information: sob Comparison: None Findings: There is normal heart size and there is status post median sternotomy. The lungs are clear of infiltrates. Impression: Clear lungs. DICTATED BY: CONCHIS ANDERSON MD DATE: 06/24/241948 ELECTRONICALLY SIGNED BY: CONCHIS ANDERSON MD DATE: 06/24/241951 PATIENT: PARK WING MR#: [id number] : 1945 SEX: M AGE: 79 LOCATION: [facility] ORDER 33 STATUS: REG ER REPORT#: [id number] SERVICE 30 REASON: left lower abd pain, rectal bleeding ORDERING PHYSICIAN: DARELL ACHARYA PROCEDURE: ABD PEL WO - CT ABDOMEN/PELVIS W/O CONTRAST CT ABDOMEN PELVIS WITHOUT CONTRAST Clinical Information: left lower abd pain, rectal bleeding PROTOCOL: Routine noncontrast helical scanning of the abdomen and pelvis was performed at 5mm collimation. Findings: No evidence of nephro or ureterolithiasis is found. No hydronephrosis or ureteral dilatation is seen. The lung bases are clear. The spleen, pancreas, gallbladder and adrenal glands are unremarkable. The liver is unremarkable. It shows no focal masses. The appendix is unremarkable. There is diverticulosis of the colon particularly involving the sigmoid colon. There are no acute inflammatory changes to suggest diverticulitis. The small and large bowel and pelvic viscera are otherwise unremarkable. The bony and vascular structures are unremarkable for the patient's age. IMPRESSION: Diverticulosis of the colon particularly involving the sigmoid. Otherwise negative CT SCAN OF THE ABDOMEN AND PELVIS. NO RENAL STONES. NO ACUTE PATHOLOGY OR INFLAMMATION SEEN. This study was performed using dose reduction techniques to include automated exposure control and/or adjustment of the mA and/or kV according to patient size. DICTATED BY: CONCHIS ANDERSON MD DATE: 06/24/241926 ELECTRONICALLY SIGNED BY: CONCHIS ANDERSON MD DATE: 06/24/241930 Assessment/Plan: ASSESSMENT: Acute GI bleed POA Hypertension POA Hyperlipidemia POA Hypothyroidism POA GERD POA Obstructive sleep apnea on CPAP POA Coronary artery disease with CABG x3 POA History of polyp POA Internal hemorrhoids POA Diverticular bleed POA Sessile polyp in cecum POA Diverticulosis POA Discharge Instructions: Start with a low-fiber soft GI diet for a few days, then gradually increase fiber intake to 25-30 g per day to prevent constipation and reduce future bleeding risk High-fiber foods like fruits, vegetables, whole grains, legumes. Avoid nuts, seeds, popcorn . Hydration drink plenty of water to maintain soft bowel movements. Resume normal activities as tolerated but avoid heavy lifting or strenuous exercise for 1-2 weeks Walking is encouraged to promote bowel function Take any prescribed medications as directed Avoid NSAIDs and aspirin as they increase risk of rebleeding Come back to the hospital if you experience any of the following If there is recurrent bleeding which is identified by bright red blood in stools or black tarry stools Severe or persistent abdominal pain Signs of low blood pressure or anemia, dizziness, fainting Follow up with Gastroenterology in 1 week Follow up with primary in 3-7 days Home Medications: Reported Medications Ketotifen Fumarate (Ketotifen Fumarate) 0.025 % (0.035 %) Drops, 1 DROP OP BID, #5 ML 0 Refills 06/26/24 Carboxymethylcellulose Sodium (Artificial Tears) 1 % Drops, 1 DROP OU QID PRN for DRY EYES for 30 Days, #15 ML 0 Refills 06/26/24 Bisacodyl (Bisacodyl) 5 Mg Tablet.dr, 2 TAB PO DAILY for constipation, #2 TAB 0 Refills 06/26/24 Prednisone (Prednisone) 10 Mg Tablet, 1 TAB PO DAILY for 5 Days, #5 TAB 0 Refills 06/26/24 Methocarbamol (Methocarbamol) 500 Mg Tablet, 0.5 TAB PO BID for 30 Days, #60 TAB 0 Refills 06/26/24 Lidocaine HCl (Lidocaine HCl 5% Oint 36Gm) 5 % Oint, 1 APPL TP QIDP PRN for PAIN, APPL 06/26/24 Omeprazole (Omeprazole) 40 Mg Capsule.dr, 1 CAP PO DAILY for 30 Days, #30 CAP 0 Refills 06/26/24 Rosuvastatin Calcium (Rosuvastatin Calcium) 20 Mg Tablet, 10 MG PO AM, TAB 10/27/23 Aspirin (ASPIRIN 81 MG ECTAB) 81 Mg Ectab, 81 MG PO DAILY, TAB.EC 10/27/23 Alfuzosin HCl (Alfuzosin HCl) 10 Mg Tab.er.24h, 10 MG PO HS, TAB 09/21/23 Levothyroxine Sodium (Levothyroxine Sodium) 50 Mcg Tablet, 50 MCG PO ACBKFST, TAB 09/21/23 Discontinued Reported Medications Metoprolol Tartrate (Metoprolol Tartrate) 25 Mg Tablet, 25 MG PO BID, TAB 11/04/23 Metoprolol Tartrate (Metoprolol Tartrate) 25 Mg Tablet, 25 MG PO BID, TAB 11/04/23 Furosemide (Furosemide) 20 Mg Tablet, 20 MG PO DAILY, TAB 11/04/23 [[place]] No Conflict Check, 4 TAB PO DAILY 10/27/23 [Zinc] No Conflict Check, 1 TAB PO DAILY 10/27/23 Charmco-3/Dha/Epa/Fish Oil (Fish Oil 1,000 mg Softgel) 1,000 Mg (120 Mg-180 Mg) Capsule, 1000 MG PO BID, CAP 10/27/23 [Vitamin B Complex] No Conflict Check, 1 TAB PO DAILY 10/27/23 Continued Medications: Alfuzosin HCl (Alfuzosin HCl) 10 Mg Tab.er.24h 10 MG PO HS, TAB Bisacodyl (Bisacodyl) 5 Mg Tablet.dr 2 TAB PO DAILY for constipation, #2 TAB 0 Refills Carboxymethylcellulose Sodium (Artificial Tears) 1 % Drops 1 DROP OU QID PRN for DRY EYES for 30 Days, #15 ML 0 Refills Ketotifen Fumarate (Ketotifen Fumarate) 0.025 % (0.035 %) Drops 1 DROP OP BID, #5 ML 0 Refills Levothyroxine Sodium (Levothyroxine Sodium) 50 Mcg Tablet 50 MCG PO ACBKFST, TAB Lidocaine HCl (Lidocaine HCl 5% Oint 36Gm) 5 % Oint 1 APPL TP QIDP PRN for PAIN, APPL Methocarbamol (Methocarbamol) 500 Mg Tablet 0.5 TAB PO BID for 30 Days, #60 TAB 0 Refills Omeprazole (Omeprazole) 40 Mg Capsule.dr 1 CAP PO DAILY for 30 Days, #30 CAP 0 Refills Prednisone (Prednisone) 10 Mg Tablet 1 TAB PO DAILY for 5 Days, #5 TAB 0 Refills Rosuvastatin Calcium (Rosuvastatin Calcium) 20 Mg Tablet 10 MG PO AM, TAB Discontinued Medications: Aspirin (Aspirin 81 Mg Ectab) 81 Mg Ectab 81 MG PO DAILY, TAB.EC Time spent arranging discharge: 1-30 minutes ATTESTATION BY PHYSICIAN I have seen and examined the patient. I reviewed the documentation, medical decision making, and treatment plan as noted by the resident provider above. I agree with the findings and plan of care. Osawldo Smith MD, KEERTI K MD Jun 27, 2024 14:47
--- NOTE | 2024-06-27 16:41 | NUR ---
DISCHARGE PIV DC'D AND BRACELETS REMOVED. TELE REMOVED. REVIEWED DISCHARGE INSTRUCTIONS, FOLLOW UP APPOINTMENTS, AND MEDICATIONS WITH PT AND . ALL QUESTIONS ANSWERED AT THIS TIME, PT VERBALIZED UNDERSTANDING. PT LEAVING FACILITY VIA WHEELCHAIR.
== END 2024-06-27 16:00 | disposition home or self-care (01) | DRG 379 ==
LOC: EDH 18:11 → EDHIP 20:51 → 3DH 06-26 11:45
PROVIDERS: ADMIT Internal Medicine; ATTEND Internal Medicine
PROC: 0DBH8ZZ Excision of Cecum, Via Natural or Artificial Opening Endoscopic (ICD-10-PCS; principal; 2024-06-26)
DX: K57.31 Diverticulosis of large intestine without perforation or abscess with bleeding (principal); K64.8 Other hemorrhoids; I10 Essential (primary) hypertension; E78.00 Pure hypercholesterolemia, unspecified; E03.9 Hypothyroidism, unspecified; K21.9 Gastro-esophageal reflux disease without esophagitis; G47.33 Obstructive sleep apnea (adult) (pediatric); I25.10 Atherosclerotic heart disease of native coronary artery without angina pectoris; N40.0 Benign prostatic hyperplasia without lower urinary tract symptoms; K62.5 Hemorrhage of anus and rectum; D12.0 Benign neoplasm of cecum; H04.123 Dry eye syndrome of bilateral lacrimal glands; K59.00 Constipation, unspecified; K63.5 Polyp of colon; J45.909 Unspecified asthma, uncomplicated; E66.9 Obesity, unspecified; D64.9 Anemia, unspecified; Z98.41 Cataract extraction status, right eye; Z95.1 Presence of aortocoronary bypass graft; Z87.442 Personal history of urinary calculi; Z85.828 Personal history of other malignant neoplasm of skin; Z79.82 Long term (current) use of aspirin; Z68.27 Body mass index [BMI] 27.0-27.9, adult
CPT/HCPCS: 36415; 45380; 71045; 74176; 80048; 80053; 80076; 81001; 82270; 82550; 83540; 83550; 83735; 83880; 84484; 85014; 85018; 85025; 85610; 85730; 86850; 86900; 86901; 88305; 93005; 96374; 99285; A4606; G0378; J2470; J2704; J7030; A4215; A4222; A4223; A4620; J3490